=== PATIENT | female | born 1995 | race Caucasian/White ===

== ENCOUNTER 2016-07-02 09:00 | Inpatient (IN) | payer MEDICAID, OTHER ==
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
[2016-07-02 14:44] VITALS: BMI 23.9
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
[2016-07-03 06:57] VITALS: BP 115/58; PULSE 95; RESP 14; TEMP 98.6
[2016-07-03 10:02] LABS: ALT 15 U/L (9-52); AST 16 U/L (14-36); Alkaline Phosphatase 62 U/L (38-126); Anion Gap 9 mmol/L; Bilirubin, Delta 0.2 mg/dL (0.0-0.2); Blood Urea Nitrogen 10 mg/dL (7-17); Calcium 9.3 mg/dL (8.4-10.2); Carbon Dioxide 25 mmol/L (22-30); Chloride 103 mmol/L (98-107); Glucose 117 mg/dL (74-99); Non-African American GFR(MDRD) >60 (>60 ml/min/1.73 sqM); Potassium 4.1 mmol/L (3.5-5.1); Sodium 137 mmol/L (137-145); Total Bilirubin 0.9 mg/dL (0.2-1.3)
[2016-07-03 10:15] LABS: Basophils % (A) 1 %; CH 30.3; CHCM 34.1; Eosinophils # (A) 0.1 k/uL (0-0.7); Eosinophils % (A) 2 %; HCT 39.3 % (34.0-46.0); HDW 2.81; HGB 13.3 gm/dL (11.4-16.0); Luc # (Auto) 0.09; Luc % (Auto) 1; Lymphocytes # (A) 1.2 k/uL (1.0-4.8); Lymphocytes % (A) 17 %; MCH 30.2 pg (25.0-35.0); MCHC 33.8 g/dL (31.0-37.0); MCV 89.2 fL (80.0-100.0); Mean Platelet Volume 7.2; Monocytes # (A) 0.2 k/uL (0-1.0); Monocytes % (A) 3 %; Neutrophils # (A) 5.6 k/uL (1.3-7.7); Neutrophils % (A) 77 %; RDW 14.4 % (11.5-15.5); WBC 7.2 k/uL (3.8-10.6); WBC (Perox) 7.31
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
[2016-07-04] MEDS ORDERED: PRENATAL VIT-IRON-FOLIC ACID 1 EACH CAP PO SCH (12:00)
== END 2016-07-03 15:41 | disposition home or self-care (01) | DRG 781 ==
LOC: EC 09:00 → 3MHU 13:36
PROVIDERS: ADMIT Psychiatry & Neurology Psychiatry; ATTEND Psychiatry & Neurology Psychiatry
DX: O99.342 Other mental disorders complicating pregnancy, second trimester (principal); O99.322 Drug use complicating pregnancy, second trimester; F43.25 Adjustment disorder with mixed disturbance of emotions and conduct; Z3A.17 17 weeks gestation of pregnancy; F12.90 Cannabis use, unspecified, uncomplicated; O21.0 Mild hyperemesis gravidarum; Z91.5 Personal history of self-harm; Z81.8 Family history of other mental and behavioral disorders
CPT/HCPCS: 76815; 80053; 80306; 82248; 84443; 85025; 99285

== ENCOUNTER 2016-08-27 02:27 | Outpatient (CLI) | payer OTHER ==
[2016-08-27 02:37] VITALS: BP 127/68; PULSE 77; RESP 16; TEMP 96.9
== END 2016-08-27 03:55 | disposition home or self-care (01) ==
LOC: FBPOP 02:27
PROVIDERS: ATTEND Obstetrics & Gynecology
DX: O26.852 Spotting complicating pregnancy, second trimester (principal); Z3A.25 25 weeks gestation of pregnancy
CPT/HCPCS: 99213

== ENCOUNTER 2016-10-11 18:38 | Emergency (ER) | payer OTHER ==
[2016-10-11] MEDS ORDERED: SODIUM CHLORIDE 0.9% 1,000 ML IV ONE (19:21)
--- NOTE | 2016-10-11 19:27 | ED ---
General Adult HPI - General Chief complaint: Shortness of Breath Stated complaint: Diff Breathing Time Seen by Provider: 10/11/16 19:01 Source: patient Mode of arrival: ambulatory Limitations: no limitations - History of Present Illness Initial comments: Arleth is a female at 31 weeks who presents to the emergency department for evaluation of fatigue, lightheadedness and feeling that she cannot catch her breath. Patient reports that she has been treated for anemia in the past, requiring a blood transfusion after the delivery of her last child. Patient reports that she has been evaluated for anemia during this and advised that she should be on iron supplementation but is currently not taking any. Patient reports that yesterday at work she began to feel very fatigued and was told she needed to relax, she reports that when she sat down she didn't feel any relief and instead felt as though she can't catch a full breath, she describes a sensation as feeling as though her stomach is full even though she hadn't just eaten anything. Patient states that she has continued to feel fatigued since yesterday. She reports eating and drinking her normal diet without any relief. denies any history of blood clots, DVTs or PEs. She denies any cardiac history. She denies any chest pain. She denies any exertional dyspnea or lower extremity swelling. Patient reports she has been feeling a lot of motion. She has occasional cramping she has had no vaginal discharge, vaginal bleeding or significant pelvic pain. She states that she has close follow-up with her OB and thus far has had an uncomplicated . - Related Data Home Medications Medication Instructions Recorded Confirmed Pnv,Calcium 72/Iron/Folic Acid 1 tab PO HS 10/11/16 10/11/16 [ Plus Tablet] Allergies Allergy/AdvReac Type Severity Reaction Status Date / Time milk Allergy Nausea & Verified 10/11/16 19:14 Vomiting & Diarrhea latex AdvReac Rash/Hives Verified 10/11/16 19:14 Review of Systems ROS Statement: Those systems with pertinent positive or pertinent negative responses have been documented in the HPI. ROS Other: All systems not noted in ROS Statement are negative. Constitutional: Denies: fever, chills, weakness ENT: Denies: throat pain, congestion Respiratory: Reports: dyspnea. Denies: cough, wheezes Cardiovascular: Denies: chest pain, palpitations, dyspnea on exertion, orthopnea , edema, syncope Endocrine: Reports: fatigue Gastrointestinal: Reports: abdominal pain (cramping). Denies: nausea, vomiting , diarrhea, constipation Genitourinary: Denies: urgency, dysuria, frequency, hematuria, discharge Musculoskeletal: Denies: back pain Skin: Denies: rash, lesions Neurological: Denies: headache, weakness, numbness, paresthesias Psychiatric: Denies: anxiety, depression Hematological/Lymphatic: Denies: easy bleeding, easy bruising Past Medical History Past Medical History: No Reported History History of Any Multi-Drug Resistant Organisms: None Reported Past Surgical History: No Surgical Hx Reported Past Anesthesia/Blood Transfusion Reactions: No Reported Reaction Past Psychological History: Depression Smoking Status: Never smoker Past Alcohol Use History: None Reported Past Drug Use History: None Reported - Past Family History Mother Family Medical History: No Reported History Father Family Medical History: No Reported History Brother(s) Family Medical History: No Reported History Sister(s) Family Medical History: No Reported History General Exam Limitations: no limitations General appearance: alert, in no apparent distress Head exam: Present: atraumatic, normocephalic Eye exam: Present: normal appearance, other (Conjunctival pallor). Absent: scleral icterus, conjunctival injection ENT exam: Present: normal exam, mucous membranes moist Neck exam: Present: normal inspection. Absent: tenderness, meningismus, lymphadenopathy Respiratory exam: Present: decreased breath sounds (bilateral bases). Absent: respiratory distress, wheezes, rales, rhonchi, stridor, chest wall tenderness, accessory muscle use Cardiovascular Exam: Present: regular rate, normal rhythm, normal heart sounds. Absent: systolic murmur, diastolic murmur, rubs, gallop, clicks GI/Abdominal exam: Present: soft. Absent: tenderness, guarding, rebound, rigid (Gravid uterus, palpable movement) Rectal exam: Present: deferred Extremities exam: Present: normal inspection, full ROM, normal capillary refill. Absent: tenderness, pedal edema, joint swelling, calf tenderness Back exam: Absent: CVA tenderness (R), CVA tenderness (L) Neurological exam: Present: alert, oriented X3, CN II-XII intact Psychiatric exam: Present: normal affect, normal mood Skin exam: Present: warm, dry, intact, normal color. Absent: rash Course Vital Signs 0710/11/16 10/11/16 18:57 19:40 20:23 Temperature 99.7 F H Pulse Rate 82 87 Respiratory 20 20 20 Rate Blood Pressure 119/67 O2 Sat by Pulse 100 99 Oximetry 10/11/16 22:14 Temperature 98.5 F Pulse Rate 55 L Respiratory 15 Rate Blood Pressure 123/64 O2 Sat by Pulse 99 Oximetry - Reevaluation(s) Reevaluation #1: She was reevaluated, sitting comfortably in the hospital bed playing on her cell phone, Laboratory results were discussed with the patient, I advised her that she is anemic with hemoglobin 9.7 and needs to resume taking iron supplementation as she has previously been advised to. Patient expressed understanding. Currently awaiting venous Dopplers of the lower extremities. Reevaluation #2: Patient was reevaluated after venous Dopplers, patient again resting comfortably playing on her cell phone. I assisted the patient ambulating to the restroom carrying her IV when she returned to the room and performed Dopplers to allow the patient here her daughter's heart rate. Ulcers discuss results of lower extremity venous Dopplers which were negative for acute DVT. EKG Findings - EKG Comments: EKG Findings:: EKG at 191 - rate is 80, rhythm is normal sinus, normal axis, normal intervals, NV 164, QRS 84, QTC 429, no acute ST elevations or depressions. Medical Decision Making - Medical Decision Making Patient seen and evaluated History obtained from patient Labs, EKG ordered EKG sinus rhythm, rate 80, normal axis, normal intervals, no acute ST elevations or depressions. No evidence of acute right heart strain. Venous Dopplers ordered to evaluate for DVT. I will not order a d-dimer because the patient is and d-dimer is not reliable to exclude pulmonary embolism in . Lab results were discussed with the patient, I advised her that she is anemic with a hemoglobin of 9.7. I advised her that this does not require transfusion however she does need to begin taking her iron supplementation and follow up with her OB for repeat hemoglobin levels. Patient expressed understanding. Dopplers reveal a heart rate with variability from 150-206 bpm, patient reports she is feeling good motion I advised the patient the considering she did have shortness of breath, I cannot absolutely rule out a pulmonary embolism without a CT angiogram. I discussed the risks and benefits of the CT angiogram during . I advised the patient that based on EKG, physical exam and negative venous Dopplers I have a low suspicion however cannot absolutely rule this out. Patient expressed understanding and would prefer to avoid CT angiogram at this time she doesn't want to expose her unborn child to radiation. I advised the patient that should she develop any worsening shortness of breath, chest pain or worsening fist Agus she needs to return to the emergency department immediately. Patient expressed understanding. All questions pertaining to care were answered to the best of my ability, I advised the patient multiple times that she is anemic and needs to be taking iron supplementation and she has been advised to do so in the past. Patient expressed understanding of this. I advised the patient that she needs call her OB tomorrow to establish follow-up. Patient expressed understanding. Patient was discharged home in stable condition. - Lab Data Result diagrams: 10/11/16 19:31 10/11/16 19:31 Lab Results 10/11/16 10/11/16 10/11/16 Range/Units 19:31 19:31 19:31 WBC 10.8 H (3.8-10.6) k/uL RBC 3.44 L (3.80-5.40) m/uL Hgb 9.7 L (11.4-16.0) gm/dL Hct 29.6 L (34.0-46.0) % MCV 86.1 (80.0-100.0) fL MCH 28.2 (25.0-35.0) pg MCHC 32.8 (31.0-37.0) g/dL RDW 14.0 (11.5-15.5) % Plt Count 299 (150-450) k/uL Neutrophils % 76 % Lymphocytes % 17 % Monocytes % 4 % Eosinophils % 2 % Basophils % 1 % Neutrophils # 8.2 H (1.3-7.7) k/uL Lymphocytes # 1.8 (1.0-4.8) k/uL Monocytes # 0.4 (0-1.0) k/uL Eosinophils # 0.2 (0-0.7) k/uL Basophils # 0.1 (0-0.2) k/uL Poikilocytosis Slight PT 10.0 (9.0-12.0) sec INR 1.0 (<1.2) APTT 21.6 L (22.0-30.0) sec Sodium 137 (137-145) mmol/L Potassium 3.7 (3.5-5.1) mmol/L Chloride 106 (98-107) mmol/L Carbon Dioxide 21 L (22-30) mmol/L Anion Gap 10 mmol/L BUN 7 (7-17) mg/dL Creatinine 0.50 L (0.52-1.04) mg/dL Est GFR (MDRD) Af Amer >60 (>60 ml/min/1.73 sqM) Est GFR (MDRD) Non-Af >60 (>60 ml/min/1.73 sqM) Glucose 97 (74-99) mg/dL Calcium 8.5 (8.4-10.2) mg/dL Total Bilirubin 0.4 (0.2-1.3) mg/dL AST 17 (14-36) U/L ALT 21 (9-52) U/L Alkaline Phosphatase 85 (38-126) U/L Total Protein 5.8 L (6.3-8.2) g/dL Albumin 3.2 L (3.5-5.0) g/dL Urine Color Urine Appearance (Clear) Urine pH (5.0-8.0) Ur Specific [place] (1.001-1.035) Urine Protein (Negative) Urine Glucose (UA) (Negative) Urine Ketones (Negative) Urine Blood (Negative) Urine Nitrite (Negative) Urine Bilirubin (Negative) Urine Urobilinogen (<2.0) mg/dL Ur Leukocyte Esterase (Negative) Ur Squamous Epith Cells (0-4) /hpf Amorphous Sediment (None) /hpf Urine Mucus (None) /hpf 10/11/16 Range/Units 20:07 WBC (3.8-10.6) k/uL RBC (3.80-5.40) m/uL Hgb (11.4-16.0) gm/dL Hct (34.0-46.0) % MCV (80.0-100.0) fL MCH (25.0-35.0) pg MCHC (31.0-37.0) g/dL RDW (11.5-15.5) % Plt Count (150-450) k/uL Neutrophils % % Lymphocytes % % Monocytes % % Eosinophils % % Basophils % % Neutrophils # (1.3-7.7) k/uL Lymphocytes # (1.0-4.8) k/uL Monocytes # (0-1.0) k/uL Eosinophils # (0-0.7) k/uL Basophils # (0-0.2) k/uL Poikilocytosis PT (9.0-12.0) sec INR (<1.2) APTT (22.0-30.0) sec Sodium (137-145) mmol/L Potassium (3.5-5.1) mmol/L Chloride (98-107) mmol/L Carbon Dioxide (22-30) mmol/L Anion Gap mmol/L BUN (7-17) mg/dL Creatinine (0.52-1.04) mg/dL Est GFR (MDRD) Af Amer (>60 ml/min/1.73 sqM) Est GFR (MDRD) Non-Af (>60 ml/min/1.73 sqM) Glucose (74-99) mg/dL Calcium (8.4-10.2) mg/dL Total Bilirubin (0.2-1.3) mg/dL AST (14-36) U/L ALT (9-52) U/L Alkaline Phosphatase (38-126) U/L Total Protein (6.3-8.2) g/dL Albumin (3.5-5.0) g/dL Urine Color Yellow Urine Appearance Cloudy H (Clear) Urine pH 7.5 (5.0-8.0) Ur Specific [place] 1.011 (1.001-1.035) Urine Protein Trace H (Negative) Urine Glucose (UA) Negative (Negative) Urine Ketones Negative (Negative) Urine Blood Negative (Negative) Urine Nitrite Negative (Negative) Urine Bilirubin Negative (Negative) Urine Urobilinogen 2.0 (<2.0) mg/dL Ur Leukocyte Esterase Negative (Negative) Ur Squamous Epith Cells <1 (0-4) /hpf Amorphous Sediment Moderate H (None) /hpf Urine Mucus Rare H (None) /hpf Disposition Clinical Impression: Anemia affecting Disposition: HOME SELF-CARE Condition: Good Instructions: Iron Rich Diet (ED), Iron Deficiency Anemia (ED), Anemia (ED) Additional Instructions: start taking your iron supplementation today. Call Dr Kuhn tomorrow to discuss with her your ER visit and establish closer follow up Referrals: Kishore Zamudio Jr, DO [Primary Care Provider] - 1-2 days Marsha Kuhn MD [STAFF PHYSICIAN] - 1-2 days Time of Disposition: 21:58
[2016-10-11 19:49] LABS: Basophils # (A) 0.1 k/uL (0-0.2); Basophils % (A) 1 %; CH 28.9; CHCM 33.7; Eosinophils # (A) 0.2 k/uL (0-0.7); Eosinophils % (A) 2 %; HCT 29.6 % (34.0-46.0); HDW 3.65; HGB 9.7 gm/dL (11.4-16.0); Luc # (Auto) 0.15; Luc % (Auto) 1; Lymphocytes # (A) 1.8 k/uL (1.0-4.8); Lymphocytes % (A) 17 %; MCH 28.2 pg (25.0-35.0); MCHC 32.8 g/dL (31.0-37.0); MCV 86.1 fL (80.0-100.0); Mean Platelet Volume 7.9; Monocytes # (A) 0.4 k/uL (0-1.0); Monocytes % (A) 4 %; Neutrophils # (A) 8.2 k/uL (1.3-7.7); Neutrophils % (A) 76 %; Poikilocytosis Slight; RBC 3.44 m/uL (3.80-5.40); WBC 10.8 k/uL (3.8-10.6); WBC (Perox) 10.07
[2016-10-11 20:05] LABS: ALT 21 U/L (9-52); AST 17 U/L (14-36); Alkaline Phosphatase 85 U/L (38-126); Anion Gap 10 mmol/L; Blood Urea Nitrogen 7 mg/dL (7-17); Calcium 8.5 mg/dL (8.4-10.2); Carbon Dioxide 21 mmol/L (22-30); Chloride 106 mmol/L (98-107); Glucose 97 mg/dL (74-99); Non-African American GFR(MDRD) >60 (>60 ml/min/1.73 sqM); Potassium 3.7 mmol/L (3.5-5.1); Sodium 137 mmol/L (137-145); Total Bilirubin 0.4 mg/dL (0.2-1.3); Total Protein 5.8 g/dL (6.3-8.2)
[2016-10-11 20:32] LABS: Partial Thromboplastin Time 21.6 sec (22.0-30.0)
[2016-10-11 20:37] LABS: Amorphous Sediment,Urine Moderate /hpf; Appearance,Urine Cloudy (Clear); Bilirubin,Urine Negative (Negative); Glucose,Urine (UA) Negative (Negative); Ketones,Urine Negative (Negative); Leukocyte Esterase,Urine Negative (Negative); Mucus,Urine Rare /hpf; Nitrite,Urine Negative (Negative); PH, Urine 7.5 (5.0-8.0); Particle Count 11216; Protein,Urine Trace (Negative); Specific Gravity,Urine 1.011 (1.001-1.035); Squamous Epithelial Cell,Urine <1 /hpf (0-4); UA Billing (MACRO vs. MICRO) MICRO
--- NOTE | 2016-10-11 21:44 | US ---
EXAMINATION TYPE: US venous doppler duplex LE BI DATE OF EXAM: 10/11/2016 9:37 PM COMPARISON: NONE CLINICAL HISTORY: Pain. SIDE PERFORMED: Bilateral TECHNIQUE: The lower extremity deep venous system is examined utilizing real time linear array sonog [place] with graded compression, doppler sonography and color-flow sonography. VESSELS IMAGED: External Iliac Vein (EIV) Common Femoral Vein Deep Femoral Vein Greater Saphenous Vein * Femoral Vein Popliteal Vein Small Saphenous Vein * Proximal Calf Veins (* superficial vessels) Right Leg: Negative for DVT Left Leg: Negative for DVT IMPRESSION: Negative exam. No evidence of deep venous thrombosis in left and right leg.
[2016-10-11 22:15] VITALS: BP 123/64; PULSE 55; RESP 15; TEMP 98.5
== END 2016-10-11 22:19 | disposition home or self-care (01) ==
LOC: EC 18:38
DX: O99.013 Anemia complicating pregnancy, third trimester (principal); D64.9 Anemia, unspecified; Z91.040 Latex allergy status; Z91.011 Allergy to milk products; Z3A.31 31 weeks gestation of pregnancy; Z79.899 Other long term (current) drug therapy
CPT/HCPCS: 36415; 80053; 81001; 85025; 85610; 85730; 87086; 93005; 93970; 96360; 96361; 99285

== ENCOUNTER 2016-12-07 06:00 | Inpatient (IN) | payer OTHER ==
[2016-12-07] MEDS ORDERED: LIDOCAINE 1% (PF) 10 MG/ML (30 ML SDV) SQ PRN (06:33)
[2016-12-07] MEDS ORDERED: METHYLERGONOVINE 0.2 MG/ML 1 ML AMP IM PRN (06:33)
[2016-12-07] MEDS ORDERED: TERBUTALINE 1 MG/ML VIAL SQ PRN (06:33)
[2016-12-07] MEDS ORDERED: CARBOPROST TROMETHAMINE 250 MCG/ML 1 ML AMP IM PRN (06:33)
[2016-12-07] MEDS ORDERED: PENICILLIN G POTASSIUM 5,000,000 UNIT in DEXTROSE 5% IN WATER 100 ML IV STA ×2 (06:33)
[2016-12-07] MEDS ORDERED: OXYTOCIN 10 UNIT/ML 1 ML VIAL IM PRN (06:33)
[2016-12-07 06:59] LABS: Anisocytosis Slight; Basophils # (A) 0.1 k/uL (0-0.2); Basophils % (A) 1 %; CH 26.9; CHCM 33.4; Eosinophils # (A) 0.2 k/uL (0-0.7); Eosinophils % (A) 2 %; HDW 3.57; HGB 9.6 gm/dL (11.4-16.0); Luc % (Auto) 1; Lymphocytes # (A) 2.1 k/uL (1.0-4.8); Lymphocytes % (A) 20 %; MCH 26.7 pg (25.0-35.0); Mean Platelet Volume 7.7; Monocytes # (A) 0.4 k/uL (0-1.0); Monocytes % (A) 4 %; Neutrophils # (A) 7.8 k/uL (1.3-7.7); Neutrophils % (A) 73 %; Poikilocytosis Slight; RBC 3.59 m/uL (3.80-5.40); RDW 16.1 % (11.5-15.5); WBC 10.7 k/uL (3.8-10.6); WBC (Perox) 11.09
[2016-12-07 07:03] LABS: MCV 80.8 fL (80.0-100.0)
[2016-12-07] MEDS: OXYTOCIN 20 UNITS/1000 ML NS 1,000 ML IV SCH ×2 (07:04→07:32)
[2016-12-07] MEDS: LACTATED RINGERS 1,000 ML IV SCH ×2 (07:32→09:01)
[2016-12-07 07:59] VITALS: BMI 29.2
[2016-12-07] MEDS ORDERED: BUTORPHANOL 1 MG/ML 1 ML VIAL IV PRN (08:52)
[2016-12-07] MEDS ORDERED: SODIUM CHLORIDE 0.9% 100 ML BAG ONE (09:32)
[2016-12-07] MEDS ORDERED: fentaNYL (PF) 50 MCG/ML 5 ML AMP ONE (09:32)
[2016-12-07] MEDS ORDERED: BUPIVACAINE (PF) 0.25% 30 ML VIAL ONE (09:32)
[2016-12-07] MEDS ORDERED: BUPIVACAINE (PF) 0.25% 25 ML, fentaNYL (PF) 200 MCG in SODIUM CHLORIDE 0.9% 71 ML EPIDURAL ONE (10:59)
[2016-12-07] MEDS ORDERED: PENICILLIN G POTASSIUM 2,500,000 UNIT in DEXTROSE 5% IN WATER 100 ML IV SCH ×2 (11:00)
--- NOTE | 2016-12-07 12:53 | P.HPOB ---
History of Present Illness H&P Date: 12/07/16 This is a 22-year-old white female 2 para 1001 EDC 12/09/2016 at 39-5/7 weeks' gestation. Patient presented this morning for elective induction of labor with favorable multiparous cervix. is remarkable for positive group B strep cultures. She denies vaginal bleeding or fluid leakage. She is having irregular mild uterine contractions upon presentation. Past medical history is significant for anxiety, as well as a history of ovarian cysts. Past surgical history is negative. Current medications vitamins daily. ALLERGIES include a latex intolerance, but no other known medical ALLERGIES. Family history significant for Mnire's disease hypothyroidism and diabetes. Social history patient is single, boyfriend is involved in the . She denies alcohol or drug use or tobacco use. history patient's group B strep cultures are positive, blood type A+, rubella status immune. VDRL testing, gonorrhea and chlamydia cultures, hepatitis B surface antigen, HIV testing, urine screen all negative. On exam this is a pleasant young female, 5 foot 2 inches, 160 pounds, blood pressure 121/58, vital signs are otherwise stable and she is afebrile. The general physical exam is within normal limits. The cervix upon admission is 3 cm dilated, 75% effaced, -2 station, vertex presentation. Artificial amniorrhexis reveals clear fluid. Uterine contractions are noted on the monitor in an irregular fashion. heart rate is in the 140s with frequent accelerations, consistent with reactive NST. Impression: 39-5/7 weeks intrauterine , here for elective induction of labor, positive group B strep cultures noted. Plan: Penicillin G prophylaxis will be instituted at this time per hospital protocol. Oxytocin per hospital protocol. Close maternal and surveillance. Analgesic options are reviewed with the patient. Anticipate normal spontaneous vaginal delivery. Review of Systems Except as in HPI. Past Medical History Past Medical History: No Reported History Additional Past Medical History / Comment(s): anxiety History of Any Multi-Drug Resistant Organisms: None Reported Past Surgical History: No Surgical Hx Reported Past Anesthesia/Blood Transfusion Reactions: No Reported Reaction Past Psychological History: Anxiety, Depression Additional Psychological History / Comment(s): plans to take Zoloft after delivery Smoking Status: Never smoker Past Alcohol Use History: None Reported Past Drug Use History: None Reported Additional Drug Use History / Comment(s): Pt. states she smoked marijuana daily before she got . Pt. states she smoked a week ago because on Nausea. Pt. states she had morning sickness but it has subsided - Past Family History Mother Family Medical History: Cancer Additional Family Medical History / Comment(s): cervical cancer Father Family Medical History: No Reported History Brother(s) Family Medical History: No Reported History Sister(s) Family Medical History: No Reported History Medications and Allergies Home Medications Medication Instructions Recorded Confirmed Type No Known Home Medications [No 12/07/16 12/07/16 History Known Home Medications] Allergies Allergy/AdvReac Type Severity Reaction Status Date / Time milk Allergy Nausea & Verified 12/07/16 06:31 Vomiting & Diarrhea latex AdvReac Rash/Hives Verified 12/07/16 06:31 Exam - Vital Signs Vital signs: Vital Signs Temp Pulse Resp BP 12/07/16 06:23 96.7 F L 80 16 121/58 Intake and Output 12/06/16 12/07/16 12/07/16 22:59 06:59 14:59 Intake Total 1.4 Balance 1.4 Intake: Intake, IV Titration 1.4 Amount Oxytocin 20 Units/1000 ml 1.4 Ns 1,000 ml @ 1 MILLIUNIT/MIN 3 mls/hr IV .Q24H [facility] Rx#:[id number] Other: Weight 72.575 kg See dictation under HPI, please. Results Result Diagrams: 12/07/16 06:45 Abnormal Lab Results - Last 24 Hours (Table) 12/07/16 Range/Units 06:45 WBC 10.7 H (3.8-10.6) k/uL RBC 3.59 L (3.80-5.40) m/uL Hgb 9.6 L (11.4-16.0) gm/dL Hct 29.0 L (34.0-46.0) % RDW 16.1 H (11.5-15.5) % Neutrophils # 7.8 H (1.3-7.7) k/uL Assessment and Plan Plan: Penicillin G prophylaxis per hospital protocol. Close maternal and surveillance. Anticipate normal spontaneous vaginal delivery. Time with Patient: Less than 30
[2016-12-07] MEDS ORDERED: diphenhydrAMINE ELIXIR 25 MG/10 ML CUP PO PRN (12:55)
[2016-12-07] MEDS ORDERED: Acetaminophen-Codeine 300-30mg TAB PO PRN (12:55)
[2016-12-07] MEDS ORDERED: diphenhydrAMINE 50 MG CAP PO PRN (12:55)
[2016-12-07] MEDS ORDERED: ZOLPIDEM 5 MG TAB PO PRN (12:55)
[2016-12-07] MEDS ORDERED: HYDROCORTISONE 2.5% RECTAL CREAM 30 GM TUBE RECTAL PRN (12:55)
[2016-12-07] MEDS ORDERED: ACETAMINOPHEN TAB 325 MG TAB PO PRN (12:55)
[2016-12-07] MEDS ORDERED: diphenhydrAMINE 50 MG/ML 1 ML VIAL IVP PRN ×2 (12:55)
[2016-12-07] MEDS ORDERED: BENZOCAINE/MENTHOL SPRAY 1 GM/SPRAY AEROSOL TOPICAL PRN (12:55)
[2016-12-07] MEDS ORDERED: SIMETHICONE 80 MG CHEWABLE PO PRN (12:55)
[2016-12-07] MEDS ORDERED: WITCH HAZEL 1 EACH MED..PAD TOPICAL PRN (12:55)
[2016-12-07] MEDS ORDERED: diphenhydrAMINE 25 MG CAP PO PRN (12:55)
[2016-12-07] MEDS ORDERED: LANOLIN CREAM 5 GM TUBE TOPICAL PRN (12:55)
--- NOTE | 2016-12-07 12:55 | P.PROBDLV ---
Vaginal Delivery Note - . Vaginal Delivery Note: This is a 21-year-old white female 2 para 1001 EDC 12/09/2016 at 39-5/7 weeks' gestation. Patient presented for elective induction of labor with favorable multiparous cervix. is significant for positive group B strep cultures. Please see my dictated history and physical for details. On admission patient was 3 cm dilated, 75% effaced, -2 station, vertex, -2 station. Artificial amniorrhexis revealed clear fluid. Oxytocin was started and titrated per hospital protocol. Penicillin G was also given, 2 doses total receive every 4 hours apart. Patient became uncomfortable requested epidural, this was placed without difficulty per the anesthesia staff. Patient progressed well through the first stage of labor and became completely dilated at 1235 hrs. The perineal body was prepped and draped in the usual sterile fashion. Infant's head delivered occiput anterior and restituted accordingly. There was a tight nuchal cord 1 that was reduced without issue. The anterior shoulder was gently and easily delivered from underneath the pubic symphysis at which time the oropharynx, nasopharynx, and external nares were all bulb suctioned on the perineal body. Patient was officially delivered of a liveborn female at 1237 hrs. The umbilical cord was doubly clamped and ligated, she was handed to waiting nurses for evaluation where scores of 9 and 9 at one and 5 minutes respectively were given. The infant weighed 7 lbs. 2 oz. or 3220 g. The placenta delivered spontaneously, it was inspected and noted to be intact with trivascular cord at 1240 hrs. At this time the perineal body was redraped. Inspection of the cervix, vagina, perineum and periurethral areas revealed no lacerations and no defects. Fundus is firm and in the midline, symmetric and 18 week size upon completion of delivery. All sponge needle and enhancement counts are correct at the end of the procedure. Patient and her family are allowed to begin the bonding experience in the LDR.
[2016-12-07] MEDS: IBUPROFEN 600 MG TAB PO PRN ×2 (13:11→21:33)
[2016-12-07] MEDS: SENNOSIDES-DOCUSATE SODIUM 1 EACH TAB PO SCH (22:23)
--- NOTE | 2016-12-08 09:36 | P.DS ---
Providers Date of admission: 12/07/16 06:10 Expected date of discharge: 12/08/16 Attending physician: Marsha Kuhn Primary care physician: [facility] Course: This is a 21-year-old white female 2 now para 2001 who presented at 39-5 /7 weeks' gestation for elective induction. was significant for positive group B strep cultures, and latex ALLERGY. Please see dictated history and physical for details. Patient was admitted, artificial amniorrhexis revealed clear fluid. Epidural was placed per her request. She went on to swiftly deliver a liveborn female infant with scores of 9 and 9 at one and 5 minutes respectively. There was a nuchal cord that was reduced on the perineal body. She did receive 5 million units of penicillin G at 0732 hours, and repeat 2.5 million units at 1152 hours. weighed 7 lbs. 2 oz. or 3220 g. There were no perineal lacerations or defects. Please see my dictated delivery note for details. This morning the patient is doing well. She is voiding, and bleeding and passing flatus without difficulty. Vital signs are stable and she is afebrile. Fundus is firm and in the midline, symmetric and 18 week size. Extremities are negative for edema. Breasts are not engorged. [place] is doing well. I have reminded her no intercourse, tampons or douching. We have briefly discussed options of contraception choices and we will discuss this further in the office. She will continue taking her vitamin every day. She will use [id number] ibuprofen products as needed for pain, 600 mg every 6 hours. She will call with any foul smelling or copious lochia, with the passage of large blood clots, with any pain not alleviated by over-the- counter products, or indeed with any concerns. [place] will follow-up with [employer] consultant as per recommendations. Patient Condition at Discharge: Good Plan - Discharge Summary New Discharge Prescriptions: No Action No Known Home Medications [No Known Home Medications] Discharge Medication List No Known Home Medications [No Known Home Medications] 12/07/16 [History] Follow up Appointment(s)/Referral(s): Marsha Kuhn MD [STAFF PHYSICIAN] - 6 Weeks Discharge Disposition: HOME SELF-CARE
[2016-12-08] MEDS: IBUPROFEN 600 MG TAB PO PRN (15:00)
[2016-12-08 15:50] VITALS: BP 134/82; PULSE 73; RESP 16; TEMP 97.5
[2016-12-08] MEDS: SENNOSIDES-DOCUSATE SODIUM 1 EACH TAB PO SCH (16:24)
== END 2016-12-08 18:22 | disposition home or self-care (01) | DRG 775 ==
LOC: 4FBP 06:10
PROVIDERS: ADMIT Obstetrics & Gynecology; ATTEND Obstetrics & Gynecology
PROC: 10E0XZZ Delivery of Products of Conception, External Approach (ICD-10-PCS; principal; 2016-12-07)
PROC: 00HU33Z Insertion of Infusion Device into Spinal Canal, Percutaneous Approach (ICD-10-PCS; 2016-12-07)
PROC: 3E0R3NZ Introduction of Analgesics, Hypnotics, Sedatives into Spinal Canal, Percutaneous Approach (ICD-10-PCS; 2016-12-07)
PROC: 10907ZC Drainage of Amniotic Fluid, Therapeutic from Products of Conception, Via Natural or Artificial Opening (ICD-10-PCS; 2016-12-07)
PROC: 3E033VJ Introduction of Other Hormone into Peripheral Vein, Percutaneous Approach (ICD-10-PCS; 2016-12-07)
DX: O69.1XX0 Labor and delivery complicated by cord around neck, with compression, not applicable or unspecified (principal); O99.344 Other mental disorders complicating childbirth; F32.9 Major depressive disorder, single episode, unspecified; F41.9 Anxiety disorder, unspecified; Z3A.39 39 weeks gestation of pregnancy; Z37.0 Single live birth; Z83.3 Family history of diabetes mellitus; Z87.891 Personal history of nicotine dependence; Z80.49 Family history of malignant neoplasm of other genital organs; Z91.040 Latex allergy status; Z91.011 Allergy to milk products
CPT/HCPCS: 85025; 88307

== ENCOUNTER 2017-12-14 18:50 | Emergency (ER) | payer OTHER ==
[2017-12-14 18:56] VITALS: BP 118/73; PULSE 94; RESP 16; TEMP 98.4
--- NOTE | 2017-12-14 19:36 | ED ---
Skin/Abscess/FB HPI - General Chief complaint: Skin/Abscess/Foreign Body Stated complaint: blisters on hands and feet Time Seen by Provider: 12/14/17 19:12 Source: patient, RN notes reviewed Mode of arrival: ambulatory Limitations: no limitations - History of Present Illness Initial comments: This is a 22-year-old female who presents to the emergency department with chief complaint of rash. Patient states that she was playing on the monkey bars on Wednesday and afterwards had pain in her palms. She states on Wednesday she noticed a rash on both of her hands and feet. She states that her daughter has similar symptoms. States that she is fully up-to-date with vaccinations. Denies any injuries. Denies fevers or chills, chest pain or shortness of breath , abdominal pain, nausea or vomiting. - Related Data Home Medications Medication Instructions Recorded Confirmed No Known Home Medications 12/07/16 12/07/16 Allergies Allergy/AdvReac Type Severity Reaction Status Date / Time milk Allergy Nausea & Verified 12/14/17 18:56 Vomiting & Diarrhea latex AdvReac Rash/Hives Verified 12/14/17 18:56 Review of Systems ROS Statement: Those systems with pertinent positive or pertinent negative responses have been documented in the HPI. ROS Other: All systems not noted in ROS Statement are negative. Past Medical History Past Medical History: No Reported History Additional Past Medical History / Comment(s): anxiety History of Any Multi-Drug Resistant Organisms: None Reported Past Surgical History: No Surgical Hx Reported Past Anesthesia/Blood Transfusion Reactions: No Reported Reaction Past Psychological History: Anxiety, Depression Smoking Status: Never smoker Past Alcohol Use History: None Reported Past Drug Use History: None Reported - Past Family History Mother Family Medical History: Cancer Additional Family Medical History / Comment(s): cervical cancer Father Family Medical History: No Reported History Brother(s) Family Medical History: No Reported History Sister(s) Family Medical History: No Reported History General Exam - General Exam Comments Initial Comments: General: Awake and alert, well-developed; in no apparent distress. HEENT: Head atraumatic, normocephalic. Pupils are equal, round and reactive to light. Extraocular movements intact. Oropharynx moist without erythema or exudate. Neck: Supple. Normal ROM. Cardiovascular: Regular rate and rhythm. No murmurs, rubs or gallops. Chest symmetrical. Respiratory: Lungs clear to auscultation bilaterally. No wheezes, rales or rhonchi. Normal respiratory effort with no use of accessory muscles. Musculoskeletal: Normal ROM, no tenderness bilateral upper and lower extremities. Ambulating normally. Skin: Discrete, erythematous maculopapular lesions bilateral palms and soles. Neurological: Alert and oriented x3. CN II-XII grossly intact. Speech is fluent and answers are appropriate. No focal neuro deficits. Psychiatric: Normal mood and affect. No overt signs of depression or anxiety noted. l Limitations: no limitations Course Vital Signs 12/14/17 18:54 Temperature 98.4 F Pulse Rate 94 Respiratory 16 Rate Blood Pressure 118/73 O2 Sat by Pulse 95 Oximetry Medical Decision Making - Medical Decision Making This is a 22-year-old female who presents to the emergency department with chief complaint of rash. Patient has discrete, erythematous maculopapular lesions on bilateral palms and soles. She reports her young daughter has the same symptoms. It does appear the patient is suffering from [id number]- mouth disease. Educated patient that this is contagious. Patient's vital signs are stable and she is in no acute distress. She will be discharged home at this time. She is in agreement and voices understanding. All questions were answered. Disposition Clinical Impression: Hand, foot, and mouth disease Disposition: HOME SELF-CARE Condition: Good Instructions: Hand, Foot, and Mouth Disease (ED) Additional Instructions: Please follow up with primary care provider within 1-2 days. Return to emergency department if symptoms should worsen or any concerns arise. Is patient prescribed a controlled substance at d/c from ED?: No Referrals: Kishore Zamudio Jr, DO [Primary Care Provider] - 1-2 days Time of Disposition: 19:36
== END 2017-12-14 20:10 | disposition home or self-care (01) ==
LOC: EC 18:50
DX: B08.4 Enteroviral vesicular stomatitis with exanthem (principal); Z91.011 Allergy to milk products; Z91.040 Latex allergy status
CPT/HCPCS: 99282

== ENCOUNTER 2018-01-06 18:07 | Emergency (ER) | payer OTHER ==
[2018-01-06 18:27] VITALS: RESP 18
[2018-01-06] MEDS ORDERED: SODIUM CHLORIDE 0.9% 1,000 ML IV ONE (18:59)
--- NOTE | 2018-01-06 19:06 | ED ---
Abdominal Pain HPI - General Chief Complaint: Abdominal Pain Stated Complaint: 18 weeks , abd pain Time Seen by Provider: 01/06/18 18:44 Source: patient, family Mode of arrival: ambulatory Limitations: no limitations - History of Present Illness Initial Comments: 22-year-old female patient who is approximately 18 weeks presents to the emergency department today for evaluation of left lower quadrant abdominal pain and mid low back pain. Patient is A0. Patient states symptoms started this morning. Patient states she has had a cough for the last couple of weeks and did have a coughing episode this morning that was quite vigorous, this is when the abdominal pain started. Patient states that it does feel like a cramping type pain. She has had diarrhea for the last two days. She denies any abnormal vaginal bleeding or discharge. Denies any hematuria, dysuria or urinary frequency. States she does have urinary urgency. Patient has not had any care other than one visit to an emergency department in [place] at around 10 weeks gestation. Patient recently moved back from [place] and does not have insurance at this time so has not yet established with an OBGYN. Patient denies any fever, chills, chest pain, shortness of breath, nausea, or vomiting. Patient denies any recent rash, shortness breath, chest pain, constipation, back pain, numbness, tingling, dizziness, weakness, headache, visual changes, or any other complaints. - Related Data Previous Rx's Medication Instructions Recorded Cephalexin [Keflex] 500 mg PO Q6H #20 cap 01/06/18 Allergies Allergy/AdvReac Type Severity Reaction Status Date / Time milk Allergy Nausea & Verified 01/06/18 19:03 Vomiting & Diarrhea latex AdvReac Rash/Hives Verified 01/06/18 19:03 Review of Systems ROS Statement: Those systems with pertinent positive or pertinent negative responses have been documented in the HPI. ROS Other: All systems not noted in ROS Statement are negative. Past Medical History Past Medical History: No Reported History Additional Past Medical History / Comment(s): anxiety History of Any Multi-Drug Resistant Organisms: None Reported Past Surgical History: No Surgical Hx Reported Past Anesthesia/Blood Transfusion Reactions: No Reported Reaction Past Psychological History: Anxiety, Depression Smoking Status: Never smoker Past Alcohol Use History: None Reported Past Drug Use History: None Reported - Past Family History Mother Family Medical History: Cancer Additional Family Medical History / Comment(s): cervical cancer Father Family Medical History: No Reported History Brother(s) Family Medical History: No Reported History Sister(s) Family Medical History: No Reported History General Exam Limitations: no limitations General appearance: alert, in no apparent distress, other (This is a well- developed, well-nourished adult female patient in no acute distress. Vital signs upon presentation are temperature 98.7F, pulse 90, respirations 18, blood pressure 122/68, pulse ox 100% on room air.) Eye exam: Present: normal appearance, PERRL, EOMI. Absent: scleral icterus, conjunctival injection, periorbital swelling ENT exam: Present: normal exam, normal oropharynx, mucous membranes moist Respiratory exam: Present: normal lung sounds bilaterally. Absent: respiratory distress, wheezes, rales, rhonchi, stridor Cardiovascular Exam: Present: regular rate, normal rhythm, normal heart sounds. Absent: systolic murmur, diastolic murmur, rubs, gallop, clicks GI/Abdominal exam: Present: soft, normal bowel sounds. Absent: distended, tenderness, guarding, rebound, rigid Neurological exam: Present: alert, oriented X3, CN II-XII intact Psychiatric exam: Present: normal affect, normal mood Skin exam: Present: warm, dry, intact, normal color. Absent: rash Course Vital Signs 01/06/18 01/06/18 18:23 23:09 Temperature 98.7 F 98 F Pulse Rate 90 88 Respiratory 18 18 Rate Blood Pressure 122/68 125/68 O2 Sat by Pulse 100 98 Oximetry Medical Decision Making - Medical Decision Making 22-year-old female patient presented to the emergency department today for evaluation of the left lower quadrant abdominal pain and mid low back pain. Physical examination is relatively unremarkable. Labs reviewed and were unremarkable. Urinalysis did show presence of bacteria in the urine. Patient is asymptomatic however given her we will treat her for this. Ultrasound was obtained and showed no acute process. Patient will be attempted to establish with Dr. Kuhn for OBGYN. Return parameters were discussed in detail. She verbalizes understanding and agrees with this plan. - Lab Data Result diagrams: 01/06/18 19:30 01/06/18 19:30 Lab Results 01/06/18 01/06/18 01/06/18 Range/Units 19:30 19:30 19:30 WBC 11.3 H (3.8-10.6) k/uL RBC 4.33 (3.80-5.40) m/uL Hgb 12.1 (11.4-16.0) gm/dL Hct 36.9 (34.0-46.0) % MCV 85.2 (80.0-100.0) fL MCH 28.0 (25.0-35.0) pg MCHC 32.9 (31.0-37.0) g/dL RDW 14.8 (11.5-15.5) % Plt Count 261 (150-450) k/uL Neutrophils % 69 % Lymphocytes % 22 % Monocytes % 4 % Eosinophils % 4 % Basophils % 1 % Neutrophils # 7.8 H (1.3-7.7) k/uL Lymphocytes # 2.4 (1.0-4.8) k/uL Monocytes # 0.4 (0-1.0) k/uL Eosinophils # 0.5 (0-0.7) k/uL Basophils # 0.1 (0-0.2) k/uL Sodium 137 (137-145) mmol/L Potassium 3.8 (3.5-5.1) mmol/L Chloride 105 (98-107) mmol/L Carbon Dioxide 22 (22-30) mmol/L Anion Gap 10 mmol/L BUN 10 (7-17) mg/dL Creatinine 0.50 L (0.52-1.04) mg/dL Est GFR (CKD-EPI)AfAm >90 (>60 ml/min/1.73 sqM) Est GFR (CKD-EPI)NonAf >90 (>60 ml/min/1.73 sqM) Glucose 77 (74-99) mg/dL Calcium 9.1 (8.4-10.2) mg/dL Total Bilirubin 0.3 (0.2-1.3) mg/dL AST 19 (14-36) U/L ALT 22 (9-52) U/L Alkaline Phosphatase 76 (38-126) U/L Total Protein 7.3 (6.3-8.2) g/dL Albumin 3.9 (3.5-5.0) g/dL Amylase 89 (30-110) U/L Lipase 120 (23-300) U/L Urine Color Yellow Urine Appearance Cloudy H (Clear) Urine pH 7.0 (5.0-8.0) Ur Specific [place] 1.018 (1.001-1.035) Urine Protein Negative (Negative) Urine Glucose (UA) Negative (Negative) Urine Ketones Negative (Negative) Urine Blood Negative (Negative) Urine Nitrite Negative (Negative) Urine Bilirubin Negative (Negative) Urine Urobilinogen <2.0 (<2.0) mg/dL Ur Leukocyte Esterase Small H (Negative) Urine RBC <1 (0-5) /hpf Urine WBC 4 (0-5) /hpf Ur Squamous Epith Cells 3 (0-4) /hpf Urine Bacteria Occasional H (None) /hpf Urine Mucus Rare H (None) /hpf - Radiology Data Radiology results: report reviewed ultrasound was obtained. Report was reviewed in its entirety. There is a viable intrauterine measuring 18 weeks 0 days. Estimated date of delivery is 06/09/2018. Heart rate is 155. Impression by Dr. Cat shows no complicating process seen. Disposition Clinical Impression: Abdominal pain during , Bacteriuria during Disposition: HOME SELF-CARE Condition: Good Instructions: Urinary Tract Infection in Women (ED), Abdominal Pain in (ED) Additional Instructions: Increase fluids. Take medications as instructed. Follow-up with [facility]ACHINE [facility]PERATOR for recheck as soon as possible. Return here immediately for any new, worsening, or concerning symptoms. Prescriptions: Cephalexin [Keflex] 500 mg PO Q6H #20 cap Is patient prescribed a controlled substance at d/c from ED?: No Referrals: Kishore Zamudio Jr, DO [Primary Care Provider] - 1-2 days Marsha Kuhn MD [STAFF PHYSICIAN] - 1-2 days Time of Disposition: 21:40
[2018-01-06 19:41] LABS: Basophils # (A) 0.1 k/uL (0-0.2); Basophils % (A) 1 %; Eosinophils # (A) 0.5 k/uL (0-0.7); Eosinophils % (A) 4 %; HCT 36.9 % (34.0-46.0); HGB 12.1 gm/dL (11.4-16.0); Lymphocytes # (A) 2.4 k/uL (1.0-4.8); Lymphocytes % (A) 22 %; MCHC 32.9 g/dL (31.0-37.0); MCV 85.2 fL (80.0-100.0); Mean Platelet Volume 7.2; Monocytes # (A) 0.4 k/uL (0-1.0); Monocytes % (A) 4 %; Neutrophils # (A) 7.8 k/uL (1.3-7.7); Neutrophils % (A) 69 %; Platelet Count 261 k/uL (150-450); RBC 4.33 m/uL (3.80-5.40); RDW 14.8 % (11.5-15.5); WBC 11.3 k/uL (3.8-10.6)
[2018-01-06 19:45] LABS: Appearance,Urine Cloudy (Clear); Bacteria,Urine Occasional /hpf; Bilirubin,Urine Negative (Negative); Blood,Urine Negative (Negative); Color,Urine Yellow; Glucose,Urine (UA) Negative (Negative); Ketones,Urine Negative (Negative); Leukocyte Esterase,Urine Small (Negative); Mucus,Urine Rare /hpf; Nitrite,Urine Negative (Negative); Protein,Urine Negative (Negative); RBC,Urine <1 /hpf (0-5); Specific Gravity,Urine 1.018 (1.001-1.035); Squamous Epithelial Cell,Urine 3 /hpf (0-4); Urobilinogen,Urine <2.0 mg/dL (<2.0); WBC,Urine 4 /hpf (0-5)
[2018-01-06 19:50] LABS: ALT 22 U/L (9-52); AST 19 U/L (14-36); Albumin 3.9 g/dL (3.5-5.0); Alkaline Phosphatase 76 U/L (38-126); Amylase 89 U/L (30-110); Anion Gap 10 mmol/L; Blood Urea Nitrogen 10 mg/dL (7-17); Calcium 9.1 mg/dL (8.4-10.2); Carbon Dioxide 22 mmol/L (22-30); Chloride 105 mmol/L (98-107); Glucose 77 mg/dL (74-99); Lipase 120 U/L (23-300); Potassium 3.8 mmol/L (3.5-5.1); Sodium 137 mmol/L (137-145); Total Bilirubin 0.3 mg/dL (0.2-1.3); Total Protein 7.3 g/dL (6.3-8.2)
--- NOTE | 2018-01-06 20:33 | US ---
EXAMINATION TYPE: US OB >= 14 wk fetus DATE OF EXAM: 01/06/2018 COMPARISON: None CLINICAL HISTORY: PainPain TECHNIQUE: Transabdominal (TA) GESTATIONAL AGE / DATING Physician Established: Not yet established Dates by LMP: LMP unknown Dates by First Scan: No previous this is first scan Dates by Current Scan: (18 weeks/0 days) EDC: 06/09/2018 Beta HCG (if available): Not available at this time SURVEY IUP: Single PLACENTA: Anterior PREVIA: No Previa ISMAEL: 11.7 cm Normal CERVICAL LENGTH (transabdominal: norm > 3.0cm): 3.4 cm BIOMETRY PRESENTATION: Vertex LIE: Longitudinal BPD: 3.89 cm 17 weeks / 6 days HC: 14.99 cm 18 weeks / 0 days AC: 12.88 cm 18 weeks / 3 days FL: 2.59 cm 17 weeks / 6 days ESTIMATED WEIGHT IN GRAMS: 225.92 grams ESTIMATED WEIGHT IN LBS/OZ: 0 lbs. 8 oz. HC/AC: 1.16cm Normal FL/AC: 20.09 Normal HEART RATE: 155 bpm RHYTHM: Normal Viable IUP 18w0d CHANELLE 06/09/2018 HR 155 BPM IMPRESSION: No complicating process seen.
[2018-01-06 23:11] VITALS: BP 125/68; PULSE 88; TEMP 98
== END 2018-01-06 22:00 | disposition home or self-care (01) ==
LOC: EC 18:07
DX: O26.892 Other specified pregnancy related conditions, second trimester (principal); R10.32 Left lower quadrant pain; O99.89 Other specified diseases and conditions complicating pregnancy, childbirth and the puerperium; R82.71 Bacteriuria; Z3A.18 18 weeks gestation of pregnancy; Z91.011 Allergy to milk products; Z91.040 Latex allergy status
CPT/HCPCS: 36415; 76805; 80053; 81001; 82150; 83690; 85025; 87086; 96360; 99284

== ENCOUNTER 2018-02-07 14:10 | Outpatient (CLI) | payer SELFPAY ==
[2018-02-07 16:17] VITALS: BP 130/64; PULSE 86; RESP 16; TEMP 98.4
--- NOTE | 2018-02-14 08:42 | P.MSEPDOC ---
Presenting Problems - Arrival Data Date of Arrival on Unit: 02/07/18 Time of Arrival on Unit: 14:10 Mode of Transport: Ambulatory - Complaint OB-Reason for Admission/Chief Complaint: Vaginal Bleeding Comment: pt states had Dr Kuhn for last 2 babies. vag deliveries. last baby 1 year old. states had placenta previa with that preg at around 16 weeks that resolved by delivery. so she was able to vag deliver. had intercourse last night. put towel between legs and. did not get up until this am when she discovered the towel was covered in bright red. blood that soaked thru to other side of towel. states no care this preg. recently moved back to area. Care with prior under last names of "Ifrah" and "Johnny" Medical History - Information : 3 Para: 2 Term: 0 : 0 Abortions: Spontaneous or Elective: 0 Number of Living Children: 2 - Gestational Age Gestational Age by CHANELLE (wks/days): 22 Weeks and 4 Days - History Complications: No Care Review of Systems - Review of Systems Constitutional: No problems Breast: No problems ENT: No problems Cardiovascular: No problems Respiratory: No problems Gastrointestinal: No problems Genitourinary: No problems Musculoskeletal: No problems Neurological: No problems Skin: No problems Comment: brown spotting noted on pts underware Vital Signs - Temperature Temperature: 98.4 F Temperature Source: Oral - Pulse Right Pulse Rate: 86 Pulse Assessment Method: Automatic Cuff - Respirations Respiratory Rate: 16 Oxygen Delivery Method: Room Air O2 Sat by Pulse Oximetry: 99 - Blood Pressure Right Arm Blood Pressure: 130/64 Blood Pressure Mean: 86 Blood Pressure Source: Automatic Cuff Medical Screen Scoring (Pre) - Cervical Exam Dilation: Exam Deferred Effacement: Exam Deferred - Uterine Contractions Frequency: N/A Duration: N/A Intensity: N/A - Maternal Vital Signs Maternal Temperature: N/A Maternal Blood Pressure: N/A Signs of Preeclampsia: N/A Maternal Respirations: N/A - Pain Assessment Pain Scale Used: Numeric (1 - 10) Pain Intensity: 0 Pain Management Goal: 0 - Maternal Trauma Maternal Trauma: N/A - Assessment Baseline FHR: 160 - Total Score Total Score (Pre): 0 - Level of Risk Level of Risk: Low (0-5) Physician Notification (Pre) - Physician Notified Physician Notified Date: 02/07/18 Physician Notified Time: 15:33 Physician/Practitioner Notifed:: Dr Cabezas Spoke With: Dr Cabezas New Order Received: Yes - Notification Comment Comment: Diamante Cabezas notified of pts reason for visit bleeding as described above, preg. history 2 vag deliveries with 1 resolved plactnal previa. OB ultrasound from er visit. 01-[address] Casarez looking for records from prior pregnancies at office. pt. to remain here for about another 30-45 min for observation for more bleeding, then will. report back to Dr Cabezas clean ronn pad placed on pt. [id number] Dr Cabezas updated with slight brownish spotting on ronn pad. no cramping, no. pain. order to discharge pt with instructions for pelvic rest until seen by OB . Pt. is to follow up with Marj at [facility] to be sure is selecting the [facility] for her. medicaid carrier then she will be able to schedule appt with Dr Kuhn for care. Advised to go this week Disposition - Disposition OB Disposition: Physician follow up in office (Patient to reestablish with Dr. Kuhn) Discharge Date: 02/07/18 Discharge Time: 15:35 I agree with the RN Medical Screening Exam: Yes Risk & Benefit of care provided described in d/c instruction: Yes Diagnosis: FALSE LABOR BEFORE 37 COMPLETED WEEKS OF GEST, THIRD TRI
== END 2018-02-07 15:35 | disposition home or self-care (01) ==
LOC: FBPOP 14:10
PROVIDERS: ATTEND Obstetrics & Gynecology
DX: O47.02 False labor before 37 completed weeks of gestation, second trimester (principal); Z3A.22 22 weeks gestation of pregnancy
CPT/HCPCS: 99213

== ENCOUNTER → 2018-04-23 | Outpatient (CLI) | payer SELFPAY ==
[2018-04-24 11:36] LABS: Appearance,Urine Cloudy (Clear); Bacteria,Urine Rare /hpf; Bilirubin,Urine Negative (Negative); Blood,Urine Negative (Negative); Color,Urine Yellow; Glucose,Urine (UA) Negative (Negative); Hyaline Casts,Urine 2 /lpf (0-2); Ketones,Urine Negative (Negative); Leukocyte Esterase,Urine Small (Negative); Mucus,Urine Few /hpf; Nitrite,Urine Negative (Negative); PH, Urine 6.5 (5.0-8.0); Protein,Urine 1+ (Negative); RBC,Urine 2 /hpf (0-5); Specific Gravity,Urine 1.021 (1.001-1.035); Squamous Epithelial Cell,Urine 2 /hpf (0-4); Urobilinogen,Urine <2.0 mg/dL (<2.0); WBC,Urine 5 /hpf (0-5)
== END ==
LOC: FBPOP 18:08
PROVIDERS: ATTEND Obstetrics & Gynecology
DX: O47.1 False labor at or after 37 completed weeks of gestation (principal); Z3A.38 38 weeks gestation of pregnancy
CPT/HCPCS: 59025; 81001; 99213

== ENCOUNTER 2018-06-05 07:35 | Inpatient (IN) | payer OTHER ==
[2018-06-05] MEDS ORDERED: CARBOPROST TROMETHAMINE 250 MCG/ML 1 ML AMP IM PRN (07:49)
[2018-06-05] MEDS ORDERED: OXYTOCIN 10 UNIT/ML 1 ML VIAL IM PRN (07:49)
[2018-06-05] MEDS ORDERED: AMPICILLIN 2,000 MG in SODIUM CHLORIDE 0.9% 100 ML IVPB STA (07:49)
[2018-06-05] MEDS ORDERED: TERBUTALINE 1 MG/ML VIAL SQ PRN (07:49)
[2018-06-05] MEDS ORDERED: LIDOCAINE 0.5% (PF) 5 MG/ML (50 ML SDV) SQ PRN (07:49)
[2018-06-05] MEDS ORDERED: METHYLERGONOVINE 0.2 MG/ML 1 ML AMP IM PRN (07:49)
[2018-06-05] MEDS ORDERED: LACTATED RINGERS 1,000 ML IV SCH (08:00)
[2018-06-05 08:22] LABS: Anisocytosis Slight; Basophils # (A) 0.1 k/uL (0-0.2); Basophils % (A) 1 %; Eosinophils # (A) 0.1 k/uL (0-0.7); Eosinophils % (A) 1 %; HGB 8.9 gm/dL (11.4-16.0); Hypochromasia Marked; Lymphocytes # (A) 2.2 k/uL (1.0-4.8); Lymphocytes % (A) 22 %; MCH 22.5 pg (25.0-35.0); MCHC 29.8 g/dL (31.0-37.0); MCV 75.4 fL (80.0-100.0); Mean Platelet Volume 7.5; Microcytosis Moderate; Monocytes # (A) 0.5 k/uL (0-1.0); Monocytes % (A) 5 %; Neutrophils % (A) 70 %; Platelet Count 246 k/uL (150-450); Poikilocytosis Slight; RBC 3.97 m/uL (3.80-5.40); RDW 18.4 % (11.5-15.5); WBC 9.9 k/uL (3.8-10.6)
[2018-06-05] MEDS ORDERED: BUTORPHANOL 1 MG/ML 1 ML VIAL IV PRN (09:23)
[2018-06-05 09:32] VITALS: BMI 33.3
[2018-06-05] MEDS ORDERED: LANOLIN CREAM 5 GM TUBE TOPICAL PRN (09:36)
[2018-06-05] MEDS ORDERED: diphenhydrAMINE 50 MG CAP PO PRN (09:36)
[2018-06-05] MEDS ORDERED: diphenhydrAMINE 25 MG CAP PO PRN (09:36)
[2018-06-05] MEDS ORDERED: BENZOCAINE/MENTHOL SPRAY 1 GM/SPRAY AEROSOL TOPICAL PRN (09:36)
[2018-06-05] MEDS ORDERED: ZOLPIDEM 5 MG TAB PO PRN (09:36)
[2018-06-05] MEDS ORDERED: SIMETHICONE 80 MG CHEWABLE PO PRN (09:36)
[2018-06-05] MEDS ORDERED: WITCH HAZEL 1 EACH MED..PAD TOPICAL PRN (09:36)
[2018-06-05] MEDS ORDERED: HYDROCORTISONE 2.5% RECTAL CREAM 30 GM TUBE RECTAL PRN (09:36)
[2018-06-05] MEDS ORDERED: diphenhydrAMINE 50 MG/ML 1 ML VIAL IVP PRN ×2 (09:36)
--- NOTE | 2018-06-05 09:42 | P.HPOB ---
History of Present Illness H&P Date: 06/05/18 Chief Complaint: IUP at 39 and 5/sevenths weeks active labor, GBS positive This is a 23-year-old 3 para 2001 at 39-5/7 weeks that presents to labor and delivery in active labor. On initial exam patient was noted to be 8 cm dilated. Patient states she has noted good movement denies loss of fluid. She states contractions started around 4:30 this morning. Patient has been receiving routine care with Dr. Kuhn. She was noted have gestational anemia and has been on iron treatment in addition to her vitamin. On blood work blood type is noted to be A+, rubella immune, GC surface antigen negative, HIV negative, RPR nonreactive, GBS positive Review of Systems Constitutional: Reports fatigue, Denies chills, Denies fever Ears, nose, mouth and throat: Denies headache Cardiovascular: Reports leg edema Respiratory: Denies dyspnea Gastrointestinal: Denies constipation, Denies diarrhea, Denies nausea, Denies vomiting Genitourinary: Reports Past Medical History Past Medical History: No Reported History Additional Past Medical History / Comment(s): anxiety History of Any Multi-Drug Resistant Organisms: None Reported Past Surgical History: No Surgical Hx Reported Past Anesthesia/Blood Transfusion Reactions: No Reported Reaction Past Psychological History: Anxiety, Depression Additional Psychological History / Comment(s): plans to take Zoloft after delivery Smoking Status: Never smoker Past Alcohol Use History: None Reported Past Drug Use History: None Reported Additional Drug Use History / Comment(s): Pt. states she smoked marijuana daily before she got . Pt. states she smoked a week ago because on Nausea. Pt. states she had morning sickness but it has subsided - Past Family History Mother Family Medical History: Cancer Additional Family Medical History / Comment(s): cervical cancer Father Family Medical History: No Reported History Brother(s) Family Medical History: No Reported History Sister(s) Family Medical History: No Reported History Medications and Allergies Home Medications Medication Instructions Recorded Confirmed Type Cephalexin [Keflex] 500 mg PO Q6H #20 cap 01/06/18 Rx Allergies Allergy/AdvReac Type Severity Reaction Status Date / Time milk Allergy Nausea & Verified 01/06/18 19:03 Vomiting & Diarrhea latex AdvReac Rash/Hives Verified 01/06/18 19:03 Exam Osteopathic Statement: *. No significant issues noted on an osteopathic structural exam other than those noted in the History and Physical/Consult. Vital Signs Pulse Resp BP 06/05/18 09:32 94 16 140/61 Intake and Output 06/04/18 06/05/18 06/05/18 21:59 06:59 14:59 Other: Weight 82.554 kg Targeted physical exam is performed on this date in general this is a well- nourished well-developed female in active labor, she notes nonlabored breathing, heart is noted to have a regular rate and rhythm her abdomen is gravid and appropriate for gestational age, on cervical exam she has 9100/-1 Results Result Diagrams: 06/05/18 08:09 Abnormal Lab Results - Last 24 Hours (Table) 06/05/18 Range/Units 08:09 Hgb 8.9 L (11.4-16.0) gm/dL Hct 30.0 L (34.0-46.0) % MCV 75.4 L (80.0-100.0) fL MCH 22.5 L (25.0-35.0) pg MCHC 29.8 L (31.0-37.0) g/dL RDW 18.4 H (11.5-15.5) %
--- NOTE | 2018-06-05 09:43 | P.PROBDLV ---
Vaginal Delivery Note - . Vaginal Delivery Note: This 23-year-old 3 para 2001 presented to labor and delivery in active labor, patient was noted to be 8 cm on admission. Patient progressed through labor to complete initially refusing to push eventually feeling the urge to push and had a normal spontaneous vaginal delivery of a viable male infant at 912, weight of 9 and 5, with Apgars of 8 and 9 at one and 5 minutes respectively. After a two-minute delayed the umbilical cord was doubly clamped and cut and the was handed off to mom. The placenta was delivered spontaneously intact with a three-vessel cord being noted. The vaginal vault was inspected and no lacerations were noted. The uterus sounded to be firm and below the umbilicus, estimated blood loss for this delivery 300 mL. Next para patient and tolerated delivery well and are resting comfortably.
[2018-06-05] MEDS ORDERED: OXYTOCIN 20 UNITS/1000 ML NS 1,000 ML IV SCH (09:45)
[2018-06-05] MEDS ORDERED: AMPICILLIN 1,000 MG in SODIUM CHLORIDE 0.9% 50 ML IVPB SCH (12:00)
[2018-06-05] MEDS: IBUPROFEN 600 MG TAB PO PRN ×2 (15:32→22:08)
[2018-06-05] MEDS: ACETAMINOPHEN TAB 325 MG TAB PO PRN (20:27)
[2018-06-06] MEDS: SENNOSIDES-DOCUSATE SODIUM 1 EACH TAB PO SCH ×3 (00:44→19:52)
[2018-06-06] MEDS: IBUPROFEN 600 MG TAB PO PRN ×3 (04:33→18:18)
[2018-06-06 07:24] LABS: Anisocytosis Slight; Basophils # (A) 0.1 k/uL (0-0.2); Basophils % (A) 1 %; Eosinophils # (A) 0.2 k/uL (0-0.7); Eosinophils % (A) 2 %; HCT 24.3 % (34.0-46.0); HGB 7.6 gm/dL (11.4-16.0); Hypochromasia Marked; Lymphocytes # (A) 2.3 k/uL (1.0-4.8); Lymphocytes % (A) 24 %; MCH 23.5 pg (25.0-35.0); MCHC 31.3 g/dL (31.0-37.0); MCV 74.9 fL (80.0-100.0); Mean Platelet Volume 7.6; Microcytosis Moderate; Monocytes # (A) 0.4 k/uL (0-1.0); Monocytes % (A) 5 %; Neutrophils # (A) 6.7 k/uL (1.3-7.7); Neutrophils % (A) 68 %; Platelet Count 185 k/uL (150-450); Poikilocytosis Slight; RBC 3.25 m/uL (3.80-5.40); RDW 18.9 % (11.5-15.5); WBC 9.8 k/uL (3.8-10.6)
--- NOTE | 2018-06-06 07:56 | P.PN ---
Subjective Progress Note Date: 06/06/18 Principal diagnosis: day #1 Slept well, moderate lochia rubra, good pain control. Objective - Vital Signs Vital signs: Vital Signs Temp 98 F 06/06/18 00:00 Pulse 83 06/06/18 00:00 Resp 15 06/06/18 00:00 BP 135/63 06/06/18 00:00 Pulse Ox Intake & Output 06/05/18 06/06/18 06/06/18 18:59 06:59 18:59 Weight 82.554 kg Other: # Voids 1 - Constitutional General appearance: Present: average body habitus, cooperative - EENT Eyes: Present: PERRLA ENT: Present: hearing grossly normal - Respiratory Respiratory: bilateral: CTA - Cardiovascular Rhythm: regular - Gastrointestinal General gastrointestinal: Present: normal bowel sounds - Integumentary Integumentary: Present: normal - Neurologic Neurologic: Present: CNII-XII intact - Musculoskeletal Musculoskeletal: Present: gait normal, strength equal bilaterally - Psychiatric Psychiatric: Present: A&O x's 3, appropriate affect, intact judgment & insight - Labs CBC & Chem 7: 06/06/18 07:04 Labs: Abnormal Lab Results - Last 24 Hours (Table) 06/05/18 06/06/18 Range/Units 08:09 07:04 RBC 3.25 L (3.80-5.40) m/uL Hgb 8.9 L 7.6 L (11.4-16.0) gm/dL Hct 30.0 L 24.3 L (34.0-46.0) % MCV 75.4 L 74.9 L (80.0-100.0) fL MCH 22.5 L 23.5 L (25.0-35.0) pg MCHC 29.8 L (31.0-37.0) g/dL RDW 18.4 H 18.9 H (11.5-15.5) % Assessment and Plan Assessment: Doing well day #1 Plan: Infant is to stay secondary to antibiotic necessity for positive group B strep status. Therefore anticipate discharge home tomorrow. Circumcision at this t drew. Continue care. Time with Patient: Less than 30
[2018-06-06] MEDS: ACETAMINOPHEN TAB 325 MG TAB PO PRN (08:18)
[2018-06-06] MEDS ORDERED: FAMOTIDINE 20 MG TAB PO STA (09:07)
[2018-06-07] MEDS: IBUPROFEN 600 MG TAB PO PRN (08:20)
[2018-06-07 09:53] VITALS: BP 137/69; PULSE 74; RESP 18; TEMP 98.4
[2018-06-07] MEDS: SENNOSIDES-DOCUSATE SODIUM 1 EACH TAB PO SCH (09:53)
--- NOTE | 2018-06-07 10:30 | P.DS ---
Providers Date of admission: 06/05/18 07:41 Expected date of discharge: 06/07/18 Attending physician: Marsha Kuhn Primary care physician: Stated None Hospital Course: This is a 23-year-old white female 3 para 2002 EDC 06/07/2018 at 39-5/7 weeks' gestation. Patient presented with a history of strong regular uterine contractions in active labor. Her was remarkable for chronic anemia, blood type A positive, rubella status immune, and positive group B strep cultures. Please see dictated history and physical for details. Artificial amniorrhexis revealed clear fluid. Patient went on to deliver vaginally a liveborn male infant with scores of 8 and 9 at one and 5 minutes respectively. weighed 9 lbs. 5 oz. or 4215 g. No perineal lacerations were encountered. Trivascular cord was noted. Please see dictated delivery note for details. was circumcised. He has been cleared for discharge home after antibiotics secondary to history of positive group B strep. Patient herself is doing well, she is voiding ambulating and passing flatus without difficulty. Admitting hemoglobin 8.6, repeat 7.9. Patient is hemodynamically stable. Breasts are not engorged. Fundus is firm and in the midline, symmetric and 18 week size. Extremities are negative for edema. Patient does have a bruise on both upper extremities from IV start attempts. They are stable and only slightly tender. Patient is being discharged home today in very good condition. She will continue taking an [id number]-dotjurh iron pill daily, as well as her vitamin daily. I've asked her to use Advil, Motrin or Aleve as needed for pain. She is requesting tubal ligation and we will likely schedule this within the next 6-12 weeks. No intercourse, tampons or douching. Call with any fevers shakes or chills, foul smelling or copious lochia, with the passage of large blood clots, with any pain not alleviated by [id number] products, or indeed with any concerns. Patient Condition at Discharge: Good Plan - Discharge Summary Discharge Rx Participant: No New Discharge Prescriptions: No Action Pnv,Calcium 72/Iron/Folic Acid [ Plus Tablet] 1 tablet PO Discharge Medication List Pnv,Calcium 72/Iron/Folic Acid [ Plus Tablet] 1 tablet PO 06/05/18 [History] Discharge Disposition: HOME SELF-CARE
== END 2018-06-07 16:55 | disposition home or self-care (01) | DRG 807 ==
LOC: FBPOP 07:35 → 4FBP 07:41
PROVIDERS: ADMIT Obstetrics & Gynecology Obstetrics; ATTEND Obstetrics & Gynecology
PROC: 10E0XZZ Delivery of Products of Conception, External Approach (ICD-10-PCS; principal; 2018-06-05)
DX: O99.824 Streptococcus B carrier state complicating childbirth (principal); Z37.0 Single live birth; O99.344 Other mental disorders complicating childbirth; O99.02 Anemia complicating childbirth; F41.9 Anxiety disorder, unspecified; F32.9 Major depressive disorder, single episode, unspecified; D64.9 Anemia, unspecified; Z3A.39 39 weeks gestation of pregnancy; Z80.49 Family history of malignant neoplasm of other genital organs
CPT/HCPCS: 85025; 86850; 86900; 86901

== ENCOUNTER → 2018-08-15 | Outpatient (CLI) | payer OTHER ==
[2018-08-15 17:01] LABS: Anisocytosis Slight; Basophils # (A) 0.1 k/uL (0-0.2); Basophils % (A) 1 %; Eosinophils # (A) 0.2 k/uL (0-0.7); Eosinophils % (A) 4 %; HCT 38.6 % (34.0-46.0); HGB 11.7 gm/dL (11.4-16.0); Hypochromasia Moderate; Lymphocytes # (A) 1.9 k/uL (1.0-4.8); Lymphocytes % (A) 37 %; MCHC 30.2 g/dL (31.0-37.0); MCV 76.3 fL (80.0-100.0); Microcytosis Slight; Monocytes # (A) 0.3 k/uL (0-1.0); Monocytes % (A) 5 %; Neutrophils # (A) 2.6 k/uL (1.3-7.7); Neutrophils % (A) 50 %; Platelet Count 356 k/uL (150-450); RBC 5.06 m/uL (3.80-5.40); RDW 17.8 % (11.5-15.5); WBC 5.2 k/uL (3.8-10.6)
== END ==
LOC: LABPAT 16:01
PROVIDERS: ATTEND Obstetrics & Gynecology
DX: Z01.812 Encounter for preprocedural laboratory examination (principal); Z31.84 Encounter for fertility preservation procedure
CPT/HCPCS: 85025

== ENCOUNTER 2018-08-16 09:03 | Day surgery (SDC) | payer OTHER ==
[2018-08-11 14:33] VITALS: BMI 29.2
[~2018-08-16 09:03] MED LIST: DEXAMETHASONE SOD PHOSPHATE 10 MG/ML 1 ML VIAL IV ONE; LACTATED RINGERS 1,000 ML IV SCH; LIDOCAINE 1% 20 ML VIAL (10MG/ML) FOR IV START INTRADERMA PRN; MIDAZOLAM 2 MG/2 ML VIAL IV PRN; Pre Op ABX Message 1 EACH MISC MISCELLANE ONE; SCOPOLAMINE 1.5MG/72HR PATCH TRANSDERM ONE
[2018-08-16 09:39] VITALS: RESP 16
[2018-08-16] MEDS: ONDANSETRON 4 MG/2 ML VIAL IVP ONE ×2 (09:49→11:50)
[2018-08-16] MEDS ORDERED: fentaNYL (PF) 50 MCG/ML 2 ML AMP ONE (10:41)
[2018-08-16] MEDS ORDERED: NEOSTIGMINE 1 MG/ML 10 ML VIAL ONE (10:41)
[2018-08-16] MEDS ORDERED: GLYCOPYRROLATE 0.2 MG/ML 2 ML VIAL ONE (10:41)
[2018-08-16] MEDS ORDERED: MIDAZOLAM 2 MG/2 ML VIAL ONE (10:41)
[2018-08-16] MEDS ORDERED: PROPOFOL 10 MG/ML 20 ML VIAL IV ONE (10:41)
[2018-08-16] MEDS ORDERED: ROCURONIUM BROMIDE 10 MG/ML 10 ML VIAL IV ONE (10:41)
[2018-08-16] MEDS ORDERED: KETOROLAC 30 MG/ML 1 ML VIAL ONE (10:41)
[2018-08-16] MEDS ORDERED: BUPIVACAINE (PF) 0.25% 30 ML VIAL SQ ONE ×2 (10:58)
--- NOTE | 2018-08-16 11:23 | P.OP ---
Date of Procedure: 08/16/18 Preoperative Diagnosis: undesired fertility Postoperative Diagnosis: Same, normal-appearing ovaries bilaterally. Procedure(s) Performed: Laparoscopic tubal ligation with Filshie clips Anesthesia: NINA Surgeon: Marsha Kuhn Packaging Mechanic #1: Stated None Estimated Blood Loss (ml): 5 IV fluids (ml): 700 Urine output (ml): 100 Pathology: none sent Condition: stable Disposition: PACU Operative Findings: Normal-appearing tubes and ovaries, appendix, colon, and pelvic sidewalls. No evidence of endometriosis. Description of Procedure: Patient is brought to the operating suite where general anesthetic is administered without difficulty. She's placed in the dorsal lithotomy position. The cervix and vagina, perineal body, and abdomen are prepped and draped in usual sterile fashion. The appropriate timeout is performed to assure proper patient and procedural identification. Antibiotics are not deemed necessary. Urine hCG is negative. Speculum was placed into the vagina. Anterior lip of the cervix is grasped with an Allis clamp. Large acorn cannula is placed on the cervix and attached to the Allis clamp, speculum is removed. Bladder is drained for approximately 100 mL of clear yellow urine. Attention is now drawn to the abdominal wall. A small infraumbilical incision is made with a sharp scalpel. There is needle is placed in hanging drop technique is utilized to assure proper placement. Abdomen is insufflated under low filling pressures of approximately 6 mmHg for a total of 3.5 L of CO2 gas. There is needle is removed. The trochars placed and placement is noted to be atraumatic. A second incision is made suprapubically, and under direct visualization a smaller trocar is also placed. Entry is atraumatic. Trendelenburg position is now utilize. Uterus is elevated. The right fallopian tube is visualized in its entirety to the fimbriated end. Filshie clip is used across the isthmic portion of the tube, with care to traverse the entire diameter of the tube into the mesal salpinx. Same procedure is carried out on the left fallopian tube, clip also placed in the isthmic portion, and entire diameter of the tube is visualized to be within the clamp, into the mesal salpinx. Bilateral ovaries appear normal. Pelvic sidewalls, anterior and posterior cul-de-sacs all negative. Appendix and cecum all appeared normal, no evidence of adhesions or endometriosis. CO2 gas is now allowed to diffuse. Trochars removed under direct visualization and the fascial defects are small and hemostatically intact. 4-0 undyed Monocryl is used in a subcutaneous manner to close the skin. The incisions are injected with quarter percent Marcaine to aid in analgesia. Steri-Strips and Mastisol are applied to the wound. Instrumentation is removed from the vagina. Cervix is clean and dry. All sponge needle and enhancement counts are correct at the end of the procedure. Toradol is now given. Patient is brought back to the recovery room in very good condition with stable vital signs including a blood pressure of 137/68, pulse 68, 99% O2 saturation. Patient will follow-up with me in the office in 2 weeks.
[2018-08-16 11:32] VITALS: TEMP 97.5
[2018-08-16] MEDS: HYDROmorphone 0.5 MG/0.5 ML SYRINGE IVP PRN ×4 (11:36→12:07)
[2018-08-16] MEDS ORDERED: LACTATED RINGERS 1,000 ML IV ONE (11:53)
[2018-08-16] MEDS ORDERED: diphenhydrAMINE 50 MG/ML 1 ML VIAL IVP ONE (12:09)
[2018-08-16] MEDS ORDERED: SCOPOLAMINE 1.5MG/72HR PATCH TRANSDERM ONE (12:36)
[2018-08-16] MEDS ORDERED: IBUPROFEN 200 MG TAB PO ONE ×2 (12:58→13:15)
[2018-08-16 14:07] VITALS: BP 122/73; PULSE 69
== END 2018-08-16 14:23 | disposition home or self-care (01) ==
LOC: OR 09:03
PROVIDERS: ATTEND Obstetrics & Gynecology
DX: Z30.2 Encounter for sterilization (principal); Z91.040 Latex allergy status; Z91.011 Allergy to milk products; Z87.440 Personal history of urinary (tract) infections; Z83.49 Family history of other endocrine, nutritional and metabolic diseases; Z83.3 Family history of diabetes mellitus; Z84.89 Family history of other specified conditions
CPT/HCPCS: 58671; 81025; J2250; J1200; J1100; J2710; J2405; J3010; J1885; J2704; J1170

== ENCOUNTER 2018-12-25 10:51 | Emergency (ER) | payer OTHER ==
[2018-12-25 11:01] VITALS: RESP 18; TEMP 97.9
--- NOTE | 2018-12-25 11:09 | ED ---
General Adult HPI - General Chief complaint: Psychiatric Symptoms Stated complaint: PETITIONED BY [facility] Time Seen by Provider: 12/25/18 11:02 Source: patient, RN notes reviewed Mode of arrival: ambulatory Limitations: no limitations - History of Present Illness Initial comments: Patient is a pleasant 23-year-old female presenting to the emergency Department with complaints of depression. Patient states symptoms have been occurring secondary to multiple stressors. Patient does admit to feeling suicidal earlier this morning and did tell her mother that she had thoughts of harming herself. Patient denies any suicidal ideation at this time. Patient states she does get like this at times when she is stressed. Patient also admits to feeling anxious . No homicidal thoughts. No hallucinations. No alcohol or street drug use. No physical complaints. - Related Data Home Medications Medication Instructions Recorded Confirmed No Known Home Medications 08/11/18 12/25/18 Allergies Allergy/AdvReac Type Severity Reaction Status Date / Time milk Allergy Nausea & Verified 12/25/18 11:09 Vomiting & Diarrhea latex AdvReac Rash/Hives Verified 12/25/18 11:09 Review of Systems ROS Statement: Those systems with pertinent positive or pertinent negative responses have been documented in the HPI. ROS Other: All systems not noted in ROS Statement are negative. Constitutional: Denies: fever Eyes: Denies: eye pain ENT: Denies: ear pain Respiratory: Denies: cough Cardiovascular: Denies: chest pain Endocrine: Denies: fatigue Gastrointestinal: Denies: abdominal pain Genitourinary: Denies: dysuria Musculoskeletal: Denies: back pain Skin: Denies: rash Neurological: Denies: headache Psychiatric: Reports: as per HPI, anxiety, depression. Denies: auditory hallucinations, visual hallucinations, homicidal thoughts Past Medical History Past Medical History: No Reported History Additional Past Medical History / Comment(s): anxiety History of Any Multi-Drug Resistant Organisms: None Reported Past Surgical History: Tubal Ligation Past Anesthesia/Blood Transfusion Reactions: No Reported Reaction Past Psychological History: Anxiety, Depression Smoking Status: Never smoker Past Alcohol Use History: None Reported Past Drug Use History: None Reported - Past Family History Mother Family Medical History: Cancer Additional Family Medical History / Comment(s): cervical cancer Father Family Medical History: No Reported History Brother(s) Family Medical History: No Reported History Sister(s) Family Medical History: No Reported History General Exam Limitations: no limitations General appearance: alert, in no apparent distress Head exam: Present: normocephalic Eye exam: Present: normal appearance Neck exam: Present: normal inspection Respiratory exam: Present: normal lung sounds bilaterally Cardiovascular Exam: Present: regular rate, normal rhythm GI/Abdominal exam: Present: soft. Absent: tenderness Extremities exam: Present: normal inspection Neurological exam: Present: alert Psychiatric exam: Present: depressed, anxious Skin exam: Present: normal color Course Vital Signs 12/25/18 10:57 Temperature 97.9 F Pulse Rate 97 Respiratory 18 Rate Blood Pressure 125/77 O2 Sat by Pulse 98 Oximetry Medical Decision Making - Medical Decision Making Patient seen by mental health services with plans for discharge. Patient reevaluated by myself. Patient still denies suicidal ideation and does contract for safety. - Lab Data Lab Results 12/25/18 Range/Units 11:30 Urine Opiates Screen Not Detected (NotDetected) Ur Oxycodone Screen Not Detected (NotDetected) Urine Methadone Screen Not Detected (NotDetected) Ur Propoxyphene Screen Not Detected (NotDetected) Ur Barbiturates Screen Not Detected (NotDetected) U Tricyclic Antidepress Not Detected (NotDetected) Ur Phencyclidine Scrn Not Detected (NotDetected) Ur Amphetamines Screen Not Detected (NotDetected) U Methamphetamines Scrn Not Detected (NotDetected) U Benzodiazepines Scrn Detected H (NotDetected) Urine Cocaine Screen Not Detected (NotDetected) U Marijuana (THC) Screen Detected H (NotDetected) Disposition Clinical Impression: Depression Disposition: HOME SELF-CARE Condition: Stable Instructions (If sedation given, give patient instructions): Depression (ED), Help Prevent Suicide (ED) Additional Instructions: Please follow-up with mental health services as directed. Please also follow-up with primary care physician in the next day or 2 for recheck. Return for thoughts of self-harm, worsening symptoms or other concerns. Is patient prescribed a controlled substance at d/c from ED?: No Referrals: Kishore Zamudio Jr, DO [Primary Care Provider] - 1-2 days Time of Disposition: 12:36
[2018-12-25 11:47] LABS: Urn Cannabinoid Scrn Detected (NotDetected)
[2018-12-25 11:48] LABS: Amphetamine Screen,Urine Not Detected (NotDetected); Barbiturate Screen,Urine Not Detected (NotDetected); Benzodiazepines Screen,Urine Detected (NotDetected); Cocaine Screen,Urine Not Detected (NotDetected); Methadone Screen, Urine Not Detected (NotDetected); Opiate Screen,Urine Not Detected (NotDetected); Oxycodone Screen, Urine Not Detected (NotDetected); Phencyclidine Screen,Urine Not Detected (NotDetected); Tricyclic Antidepressant,Urine Not Detected (NotDetected)
[2018-12-25 12:49] VITALS: BP 121/74; PULSE 78
== END 2018-12-25 12:48 | disposition home or self-care (01) ==
LOC: EC 10:51
DX: F32.9 Major depressive disorder, single episode, unspecified (principal); Z91.011 Allergy to milk products; Z91.048 Other nonmedicinal substance allergy status
CPT/HCPCS: 80306; 82075; 99284

== ENCOUNTER 2019-03-27 15:59 | Inpatient (IN) | payer MEDICAID, OTHER ==
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
[2019-03-27] MEDS ORDERED: LORazepam 2 MG/ML INJ IM STA (19:19)
[2019-03-27] MEDS ORDERED: ACETAMINOPHEN TAB 325 MG TAB PO PRN (20:33)
[2019-03-27] MEDS ORDERED: MAG HYDROX/AL HYDROX/SIMETH 30 ML CUP PO PRN (20:33)
[2019-03-27] MEDS ORDERED: MAGNESIUM HYDROXIDE 2,400 MG/10 ML CUP PO PRN (20:33)
[2019-03-27] MEDS ORDERED: ZIPRASIDONE 20 MG VIAL IM PRN (20:33)
[2019-03-28 09:54] LABS: Anisocytosis Slight; Basophils # (A) 0.1 k/uL (0-0.2); Basophils % (A) 1 %; Eosinophils # (A) 0.5 k/uL (0-0.7); Eosinophils % (A) 9 %; HCT 36.5 % (34.0-46.0); HGB 11.6 gm/dL (11.4-16.0); Hypochromasia Slight; Lymphocytes # (A) 1.3 k/uL (1.0-4.8); Lymphocytes % (A) 24 %; MCH 25.2 pg (25.0-35.0); MCHC 31.8 g/dL (31.0-37.0); MCV 79.1 fL (80.0-100.0); Mean Platelet Volume 7.7; Microcytosis Slight; Monocytes # (A) 0.3 k/uL (0-1.0); Monocytes % (A) 5 %; Neutrophils # (A) 3.2 k/uL (1.3-7.7); Neutrophils % (A) 60 %; Platelet Count 282 k/uL (150-450); RBC 4.62 m/uL (3.80-5.40); RDW 16.3 % (11.5-15.5); WBC 5.4 k/uL (3.8-10.6)
[2019-03-28 10:09] LABS: ALT 12 U/L (4-34); AST 23 U/L (14-36); African American GFR (CKD) >90 (>60 ml/min/1.73 sqM); Alkaline Phosphatase 98 U/L (38-126); Anion Gap 7 mmol/L; Blood Urea Nitrogen 8 mg/dL (7-17); Calcium 9.1 mg/dL (8.4-10.2); Carbon Dioxide 25 mmol/L (22-30); Chloride 109 mmol/L (98-107); Cholesterol 163 mg/dL (<200); Glucose 100 mg/dL (74-99); HDL Cholesterol 48 mg/dL (40-60); LDL Cholesterol,Calculated 98 mg/dL (0-99); Non-African American GFR(CKD) >90 (>60 ml/min/1.73 sqM); Potassium 3.9 mmol/L (3.5-5.1); Sodium 141 mmol/L (137-145); Total Bilirubin 0.9 mg/dL (0.2-1.3); Triglycerides 84 mg/dL (<150)
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
[2019-03-28 15:35] LABS: Appearance,Urine Clear (Clear); Bilirubin,Urine Negative (Negative); Blood,Urine Trace (Negative); Color,Urine Light Yellow; Glucose,Urine (UA) Negative (Negative); Ketones,Urine Negative (Negative); Leukocyte Esterase,Urine Negative (Negative); Nitrite,Urine Negative (Negative); Protein,Urine Negative (Negative); RBC,Urine <1 /hpf (0-5); Specific Gravity,Urine 1.001 (1.001-1.035); Squamous Epithelial Cell,Urine <1 /hpf (0-4); Urobilinogen,Urine <2.0 mg/dL (<2.0); WBC,Urine 1 /hpf (0-5)
[2019-03-28 18:32] LABS: Urine Alcohol Negative (Negative); Urine Barbiturate Negative (Negative); Urine Cocaine Negative (Negative); Urine Methadone Negative (Negative); Urine Opiates Negative (Negative); Urine Phencyclidine Negative (Negative)
[2019-03-28 19:42] LABS: Hemoglobin A1C 5.1 % (4.0-6.0)
[2019-03-28] MEDS ORDERED: traZODone HCL 50 MG TAB PO SCH (21:00)
[2019-03-28] MEDS ORDERED: DIVALPROEX ER 500 MG TAB.ER.24H PO SCH (21:00)
[2019-03-28] MEDS ORDERED: IBUPROFEN 800 MG TAB PO PRN (22:51)
[2019-03-29 06:56] VITALS: TEMP 99
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
[2019-03-29] MEDS ORDERED: NAPROXEN 250 MG TAB PO SCH (12:30)
[2019-03-29] MEDS ORDERED: FAMOTIDINE 20 MG TAB PO SCH (12:30)
--- NOTE | 2019-03-29 14:13 | XR ---
EXAMINATION TYPE: XR knee complete LT DATE OF EXAM: 03/29/2019 COMPARISON: NONE HISTORY: Pain TECHNIQUE: 3 views FINDINGS: I see no fracture nor dislocation. Joint spaces are normal. There is no sign of joint effus ion. IMPRESSION: Normal left knee.
--- NOTE | 2019-03-29 14:21 | XR ---
EXAMINATION TYPE: XR facial bones complete DATE OF EXAM: 03/29/2019 COMPARISON: NONE HISTORY: Pain TECHNIQUE: 3 views FINDINGS: There is mucosal thickening in the right maxillary sinus. There is increased density at the roof of the left maxillary sinus and increased density over the left orbit. There is soft tissue swe lling over the left orbit. Mandibular ring appears intact. Nasal bone appears intact. IMPRESSION: Right maxillary sinusitis. Increased density in the superior left maxillary sinus region could relate to a blowout fracture of the left orbit. CT scan would be helpful for further evaluation if clinically indicated.
--- NOTE | 2019-03-29 14:59 | P.PN ---
Subjective Progress Note Date: 03/29/19 Chief complaint: "I am feeling better" Subjective: The patient has been seen today as follow-up, chart reviewed, case discussed with the treatment team. Patient reports poor sleep last night and attributes it to pain in her ribs and racing thoughts. Patient has been going to groups and other unit activities. Patient reports improved appetite. Patient reports continued to feeling less depressed but still reports crying spells and missing her children. She reports occasional panic attacks. The patient is compliant with her medications and denies any adverse reactions. She denies any auditory or visual hallucinations. She denies any suicidal, homicidal or paranoid ideations. Objective - Vital Signs Vital signs: Vital Signs Temp 99 F 03/29/19 06:25 Pulse 74 03/29/19 06:25 Resp 16 03/29/19 06:25 BP 112/56 03/29/19 06:25 Pulse Ox 99 03/27/19 16:55 - Exam Objective: Vitals has been reviewed. Mental status examination; Appearance: The patient appears stated age, adequately groomed and dressed, no specific features. Gait/posture: Normal gait, Normal arm swinging: No abnormal movements. Attitude and behavior: engaged, cooperative, eye contact. Motor activity: Normal psychomotor activity Speech: Normal rate, tone. Mood: Anxious, depressed. Affect: Constricted Thought form: goal-directed, linear, coherent. Thought content: Non-delusional, denies suicidal thoughts. Orientation: Patient patient was fully oriented to time place person and situation. Insight: Patient has poor insight about his psychiatric disorder. Judgment: Patient has fair judgment about his psychiatric treatment. - Labs CBC & Chem 7: 03/28/19 09:37 03/28/19 09:37 Labs: Abnormal Lab Results - Last 24 Hours (Table) 03/28/19 03/28/19 Range/Units 15:00 15:00 Urine Blood Trace H (Negative) U Benzodiazepines Scrn Positive H (Negative) ng/mL U Cannabinoids Screen Positive H (Negative) ng/mL Assessment and Plan Assessment: IMPRESSIONS: Mood disorder NOS. Rule out bipolar disorder Cannabis use disorder Rule out borderline personality disorder Plan: PLAN: Continue on suicidal precautions 1:1 support and psychotherapy Increase [Depakote ER 1000 mg PO qhs. Start Seroquel 50 mg PO qhs and 25 mg PO bid PRN Continue Trazodone 50 mg PO qhs PRN] Milieu therapy including PT, OT and GT. Adjust medications and monitor closely for the patient's symptoms getting worse and /or possible side effects on medications.
[2019-03-29] MEDS ORDERED: QUEtiapine 25 MG TAB PO PRN (15:00)
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
--- NOTE | 2019-03-29 18:09 | CT ---
EXAMINATION TYPE: CT facial bones wo con DATE OF EXAM: 03/29/2019 COMPARISON: None HISTORY: Orbital bruising CT DLP: 411.4 mGycm Automated exposure control for dose reduction was used. Multiple axial sections were obtained from the bottom of the mandible to the top of the frontal sinus es without contrast. The mandibular ring appears intact. Temporomandibular joints appear intact. Zygomatic arches appear n ormal. There is moderate mucosal thickening right maxillary sinus. There is mild mucosal thickening i n the right side ethmoid sinus. Frontal sinus appears normal. Sphenoid sinus appears normal. There is no evidence of orbital mass. Orbital margins are intact. There is mucosal thickening at the right os tiomeatal complex. There is patency of the left ostiomeatal complex. There is no evidence of a blowou t fracture. The maxilla is intact. The globes are symmetric. Nasal bone is intact. IMPRESSION: Findings are consistent with ordinary right side ethmoid and maxillary sinusitis. No fracture seen. N o evidence of a blowout fracture that is suggested by the plain film exam today.
[2019-03-29] MEDS ORDERED: SODIUM CHLORIDE 0.9% 1,000 ML IV SCH (19:15)
[2019-03-29 19:34] VITALS: BP 156/90; PULSE 101; RESP 22
--- NOTE | 2019-03-29 19:54 | CT ---
EXAMINATION TYPE: CT brain wo con DATE OF EXAM: 03/29/2019 COMPARISON: None HISTORY: Seizure CT DLP: 952.6 mGycm Automated exposure control for dose reduction was used. Ventricles have normal size. There is no mass effect nor midline shift. There is no sign of intracran ial hemorrhage. There is right maxillary sinus mucosal thickening. There is mild ethmoid sinus mucosa l thickening. IMPRESSION: Negative CT scan of the brain. Sinusitis.
[2019-03-29] MEDS ORDERED: PHENYTOIN SODIUM INJ 50 MG/ML 2 ML VIAL IVP SCH (20:00)
[2019-03-29] MEDS ORDERED: QUEtiapine 50 MG TAB PO SCH (21:00)
[2019-03-29] MEDS ORDERED: DIVALPROEX ER 500 MG TAB.ER.24H PO SCH (21:00)
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
== END 2019-03-29 19:10 | disposition short-term general hospital (02) | DRG 881 ==
LOC: EC 15:59 → 3MHU 20:27
PROVIDERS: ADMIT Psychiatry & Neurology Psychiatry; ATTEND Psychiatry & Neurology Psychiatry
DX: F32.9 Major depressive disorder, single episode, unspecified (principal); R45.851 Suicidal ideations; F41.0 Panic disorder [episodic paroxysmal anxiety]; F12.90 Cannabis use, unspecified, uncomplicated; R56.9 Unspecified convulsions; R07.81 Pleurodynia; M25.562 Pain in left knee; S00.12XA Contusion of left eyelid and periocular area, initial encounter; S00.11XA Contusion of right eyelid and periocular area, initial encounter; S00.83XA Contusion of other part of head, initial encounter; Z98.51 Tubal ligation status; Z91.041 Radiographic dye allergy status; Z91.011 Allergy to milk products; Z80.49 Family history of malignant neoplasm of other genital organs; Y04.2XXA Assault by strike against or bumped into by another person, initial encounter
CPT/HCPCS: 70150; 70450; 70486; 71111; 80053; 80061; 80306; 81001; 81025; 82075; 83036; 84443; 85025; 96372; 99285

== ENCOUNTER 2019-03-29 19:12 | Observation (INO) | payer OTHER ==
[2019-04-01 08:25] VITALS: BP 115/64; PULSE 105; RESP 20; TEMP 97.7
== END 2019-04-01 10:25 ==
LOC: INTOOBSV 19:51 → UNDOADMIN 19:51 → 3SCARD 19:51 → UNDODISIN 04-01 10:25
PROVIDERS: ADMIT Family Medicine; ATTEND Family Medicine
DX: R56.9 Unspecified convulsions (principal); R45.851 Suicidal ideations; F32.9 Major depressive disorder, single episode, unspecified; F41.9 Anxiety disorder, unspecified; R10.9 Unspecified abdominal pain; S00.11XA Contusion of right eyelid and periocular area, initial encounter; R07.89 Other chest pain; F39 Unspecified mood [affective] disorder; F12.90 Cannabis use, unspecified, uncomplicated; S80.02XA Contusion of left knee, initial encounter; V47.5XXA Car driver injured in collision with fixed or stationary object in traffic accident, initial encounter; Z98.51 Tubal ligation status; Y09 Assault by unspecified means
CPT/HCPCS: 96376; 96361 ×2; 96374; 96375 ×2; 95816; 80053; 80048; 80185; 83735 ×2; 85025 ×2; G0378 ×4; G0379; J1165 ×2; J2405; C9113

== ENCOUNTER 2019-04-01 09:50 | Inpatient (IN) | payer MEDICAID ==
[2019-04-01 11:05] VITALS: RESP 16
[2019-04-01] MEDS ORDERED: ACETAMINOPHEN TAB 325 MG TAB PO PRN (11:10)
[2019-04-01] MEDS ORDERED: MAGNESIUM HYDROXIDE 2,400 MG/10 ML CUP PO PRN (11:10)
[2019-04-01] MEDS ORDERED: MAG HYDROX/AL HYDROX/SIMETH 30 ML CUP PO PRN (11:10)
[2019-04-01] MEDS ORDERED: traZODone HCL 50 MG TAB PO PRN (11:13)
[2019-04-01] MEDS ORDERED: IBUPROFEN 600 MG TAB PO PRN (11:15)
[2019-04-01] MEDS: QUEtiapine 25 MG TAB PO PRN (12:45)
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
[2019-04-01] MEDS: PHENYTOIN SODIUM EXTENDED 100 MG CAP PO SCH ×3 (18:02→23:48)
[2019-04-01] MEDS: DIVALPROEX ER 500 MG TAB.ER.24H PO SCH (20:51)
[2019-04-01] MEDS: QUEtiapine 50 MG TAB PO SCH (20:51)
[2019-04-02] MEDS: PHENYTOIN SODIUM EXTENDED 100 MG CAP PO SCH ×2 (08:58→16:33)
[2019-04-02] MEDS: PANTOPRAZOLE 40 MG TABLET PO SCH (08:58)
[2019-04-02] MEDS: QUEtiapine 25 MG TAB PO PRN (08:59)
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
[2019-04-02 11:25] LABS: T4, Free (Free Thyroxine) 1.78 ng/dL (0.78-2.19)
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
[2019-04-02] MEDS: IRON PS CMPLX/VIT B12/FA 1 EACH CAP PO SCH (12:23)
[2019-04-02] MEDS: QUEtiapine 50 MG TAB PO SCH (20:55)
[2019-04-02] MEDS: DIVALPROEX ER 500 MG TAB.ER.24H PO SCH (20:55)
[2019-04-03] MEDS: PHENYTOIN SODIUM EXTENDED 100 MG CAP PO SCH ×4 (00:36→23:58)
[2019-04-03] MEDS: IRON PS CMPLX/VIT B12/FA 1 EACH CAP PO SCH (08:29)
[2019-04-03] MEDS: PANTOPRAZOLE 40 MG TABLET PO SCH (08:29)
[2019-04-03] MEDS: QUEtiapine 25 MG TAB PO PRN (08:30)
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
[2019-04-03] MEDS: QUEtiapine 50 MG TAB PO SCH (20:54)
[2019-04-03] MEDS: DIVALPROEX ER 500 MG TAB.ER.24H PO SCH (20:54)
[2019-04-04] MEDS: PANTOPRAZOLE 40 MG TABLET PO SCH (08:43)
[2019-04-04] MEDS: IRON PS CMPLX/VIT B12/FA 1 EACH CAP PO SCH (08:43)
[2019-04-04] MEDS: QUEtiapine 25 MG TAB PO PRN (08:44)
[2019-04-04] MEDS: PHENYTOIN SODIUM EXTENDED 100 MG CAP PO SCH ×3 (08:44→23:12)
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
[2019-04-04] MEDS ORDERED: QUEtiapine 25 MG TAB PO SCH (21:00)
[2019-04-04] MEDS: DIVALPROEX ER 500 MG TAB.ER.24H PO SCH (21:35)
[2019-04-05 07:05] VITALS: BP 118/56; PULSE 87; TEMP 97.6
[2019-04-05] MEDS: PHENYTOIN SODIUM EXTENDED 100 MG CAP PO SCH (08:26)
[2019-04-05] MEDS: PANTOPRAZOLE 40 MG TABLET PO SCH (08:26)
[2019-04-05] MEDS: IRON PS CMPLX/VIT B12/FA 1 EACH CAP PO SCH (08:26)
[2019-04-05] MEDS: QUEtiapine 25 MG TAB PO PRN (08:27)
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
== END 2019-04-05 12:46 | disposition home or self-care (01) | DRG 885 ==
LOC: 3MHU 10:27
PROVIDERS: ADMIT Psychiatry & Neurology Psychiatry; ATTEND Psychiatry & Neurology Psychiatry
DX: F31.81 Bipolar II disorder (principal); R45.851 Suicidal ideations; F13.239 Sedative, hypnotic or anxiolytic dependence with withdrawal, unspecified; G40.909 Epilepsy, unspecified, not intractable, without status epilepticus; D50.9 Iron deficiency anemia, unspecified; F41.9 Anxiety disorder, unspecified; F12.10 Cannabis abuse, uncomplicated; F60.3 Borderline personality disorder; F63.9 Impulse disorder, unspecified; S80.02XA Contusion of left knee, initial encounter; S00.12XA Contusion of left eyelid and periocular area, initial encounter; S00.11XA Contusion of right eyelid and periocular area, initial encounter; Z79.899 Other long term (current) drug therapy; Z98.51 Tubal ligation status; Z91.040 Latex allergy status; V89.2XXA Person injured in unspecified motor-vehicle accident, traffic, initial encounter; Y92.410 Unspecified street and highway as the place of occurrence of the external cause; Y09 Assault by unspecified means; Z80.49 Family history of malignant neoplasm of other genital organs
CPT/HCPCS: 80185; 84439; 84443; 84481

== ENCOUNTER 2022-11-17 17:35 | Emergency (ER) | payer OTHER ==
[2022-11-17 17:39] VITALS: BP 123/83; PULSE 69; RESP 16; TEMP 97.7
--- NOTE | 2022-11-17 18:27 | ED ---
General Adult HPI - General Chief complaint: Needlestick/Exposure Stated complaint: needle stick at work Time Seen by Provider: 11/17/22 18:00 Source: patient, RN notes reviewed Mode of arrival: ambulatory Limitations: no limitations - History of Present Illness Initial comments: 27-year-old female presents emergency Department with chief complaint of needle stick injury. She states that she was at work at [employer] she struck her left index finger with a used needle. She states that she rinsed the area. Patient reports that the source had her blood tested very recently for a similar incident and was negative for HIV, hepatitis. - Related Data Previous Rx's Medication Instructions Recorded Acetaminophen Tab [Tylenol] 650 mg PO Q6HR PRN tab 03/31/19 Phenytoin Sodium Extended 100 mg PO Q8HR cap 03/31/19 [Dilantin] Divalproex ER [Depakote ER] 1,000 mg PO HS 30 Days #60 04/05/19 tab.er.[id number] Iron Ps Cmplx/Vit B12/FA 1 each PO DAILY 30 Days #30 cap 04/05/19 [Niferex-150 Forte] QUEtiapine [SEROquel] 25 mg PO HS 30 Days #30 tab 04/05/19 Allergies Allergy/AdvReac Type Severity Reaction Status Date / Time latex AdvReac Rash/Hives Verified 04/01/19 11:19 Review of Systems ROS Statement: Those systems with pertinent positive or pertinent negative responses have been documented in the HPI. ROS Other: All systems not noted in ROS Statement are negative. Past Medical History Past Medical History: Seizure Disorder Additional Past Medical History / Comment(s): new onset seizures 03/29/19 History of Any Multi-Drug Resistant Organisms: None Reported Past Surgical History: Tubal Ligation Past Anesthesia/Blood Transfusion Reactions: No Reported Reaction Past Psychological History: Anxiety, Depression Past Alcohol Use History: None Reported Past Drug Use History: Marijuana - Past Family History Mother Family Medical History: Cancer Additional Family Medical History / Comment(s): cervical cancer Father Family Medical History: No Reported History Brother(s) Family Medical History: No Reported History Sister(s) Family Medical History: No Reported History General Exam Limitations: no limitations General appearance: alert, in no apparent distress Head exam: Present: atraumatic, normocephalic, normal inspection Eye exam: Present: normal appearance, PERRL, EOMI. Absent: scleral icterus, conjunctival injection, periorbital swelling ENT exam: Present: normal exam, mucous membranes moist Neck exam: Present: normal inspection. Absent: tenderness, meningismus, lymphadenopathy Respiratory exam: Present: normal lung sounds bilaterally. Absent: respiratory distress, wheezes, rales, rhonchi, stridor Cardiovascular Exam: Present: regular rate, normal rhythm, normal heart sounds. Absent: systolic murmur, diastolic murmur, rubs, gallop, clicks Extremities exam: Present: normal inspection, full ROM, normal capillary refill. Absent: tenderness, pedal edema, joint swelling, calf tenderness Back exam: Present: normal inspection Neurological exam: Present: alert, oriented X3 Psychiatric exam: Present: normal affect, normal mood Skin exam: Present: warm, dry, normal color, other (visible needlestick injury to left index finger) Course Vital Signs 11/17/22 17:36 Temperature 97.7 F Pulse Rate 69 Respiratory 16 Rate Blood Pressure 123/83 O2 Sat by Pulse 99 Oximetry Medical Decision Making - Medical Decision Making Was pt. sent in by a medical professional or institution (, PA, [employer], urgent care, hospital, or residential...) When possible be specific @ -No Did you speak to anyone other than the patient for history (EMS, parent, family, police, friend...)? What history was obtained from this source @ -No Did you review nursing and triage notes (agree or disagree)? Why? @ -I reviewed and agree with nursing and triage notes Were old charts reviewed (outside hosp., previous admission, EMS record, old EKG, old radiological studies, urgent care reports/EKG's, residential records)? Report findings @ -No old charts were reviewed Differential Diagnosis (chest pain, altered mental status, abdominal pain women, abdominal pain men, vaginal bleeding, weakness, fever, dyspnea, syncope, headache, dizziness, GI bleed, back pain, seizure, CVA, palpatations, mental health, musculoskeletal)? @ -not applicable EKG interpreted by me (3pts min.). @ -none X-rays interpreted by me (1pt min.). @ -None done CT interpreted by me (1pt min.). @ -None done U/S interpreted by me (1pt. min.). @ -None done What testing was considered but not performed or refused? (CT, X-rays, U/S, labs)? Why? @ -None What meds were considered but not given or refused? Why? @ -None Did you discuss the management of the patient with other professionals (professionals i.e. , PA, [employer], lab, RT, psych nurse, licensed master social worker, sander and buffer, teacher, forestry technical officer, case technician)? Give summary @ -No Was smoking cessation discussed for >3mins.? @ -No Was critical care preformed (if so, how long)? @ -No Were there social determinants of health that impacted care today? How? (Homelessness, low income, unemployed, alcoholism, drug addiction, transportation, low edu. Level, literacy, decrease access to med. care, usp, rehab)? @ -No Was there de-escalation of care discussed even if they declined (Discuss DNR or withdrawal of care, Hospice)? DNR status @ -No What co-morbidities impacted this encounter? (DM, HTN, Smoking, COPD, CAD, Cancer, CVA, ARF, Chemo, Hep., AIDS, mental health diagnosis, sleep apnea, morbid obesity)? @ -None Was patient admitted / discharged? Hospital course, mention meds given and route, prescriptions, significant lab abnormalities, going to OR and other pertinent info. @ -discharged. Patient presented to the emergency department with chief complaint of needlestick injury. Patient states that she stuck herself in the finger with a used needle. Patient states that the patients HIV and hepatitis status were checked within the last month and were negative. Needlestick paperwork and blood sent on patient. Patient discharged in stable condition. Case discussed with my attending, Dr. Kulkarni Undiagnosed new problem with uncertain prognosis? @ -No Drug Therapy requiring intensive monitoring for toxicity (Heparin, Nitro, Insulin, Cardizem)? @ -No Were any procedures done? @ -No Diagnosis/symptom? @ -[needlestick injury Acute, or Chronic, or Acute on Chronic? @ -Acute Uncomplicated (without systemic symptoms) or Complicated (systemic symptoms)? @ -Uncomplicated Side effects of treatment? @ -No Exacerbation, Progression, or Severe Exacerbation? @ -No Poses a threat to life or bodily function? How? (Chest pain, [place], [place], pneumonia, PE, COPD, DKA, ARF, appy, cholecystitis, CVA, Diverticulitis, Homicidal, Suicidal, threat to staff... and all critical care pts) @ -No Disposition Clinical Impression: Needlestick injury accident Disposition: HOME SELF-CARE Condition: Stable Instructions (If sedation given, give patient instructions): Needle Stick Injuries (ED) Is patient prescribed a controlled substance at d/c from ED?: No Referrals: Kishore Zamudio Jr, DO [Primary Care Provider] - 1-2 days
[2022-11-18 02:24] LABS: Hepatitis B Surface AB- Quant 3.5 mIU/mL; Hepatitis B Surface Antigen Nonreactive; Hepatitis C IgG Antibody Nonreactive
[2022-11-18 07:24] LABS: HIV 2 AB Non-Reactive (Non-Reactive); HIV AB P24 Non-Reactive (Non-Reactive); HIV P24 AG Non-Reactive (Non-Reactive)
== END 2022-11-17 18:56 | disposition home or self-care (01) ==
LOC: EC 17:35
DX: S61.231A Puncture wound without foreign body of left index finger without damage to nail, initial encounter (principal); G40.909 Epilepsy, unspecified, not intractable, without status epilepticus; F41.9 Anxiety disorder, unspecified; F32.A Depression, unspecified; F12.90 Cannabis use, unspecified, uncomplicated; Z79.899 Other long term (current) drug therapy; Z91.040 Latex allergy status; W46.0XXA Contact with hypodermic needle, initial encounter; Y99.0 Civilian activity done for income or pay
CPT/HCPCS: 36415; 86706; 86803; 87340; 87390; 99283

== ENCOUNTER 2024-03-24 12:24 | Inpatient (IN) | payer MEDICAID, OTHER ==
--- NOTE | 2024-03-24 13:35 | ED ---
Psych HPI - General Source: patient, police, RN notes reviewed Mode of arrival: ambulatory Limitations: no limitations <Gisele Bustos - Last Filed: 03/24/24 13:34> - General Source: patient, RN notes reviewed <Patti Hay - Last Filed: 03/24/24 18:08> - General Chief Complaint: Psychiatric Symptoms Stated Complaint: Petition Time Seen by Provider: 03/24/24 13:35 - History of Present Illness Initial Comments: Quick note: 29-year-old female escorted by police presented the ER for mental health evaluation. Patient is reporting current suicidal ideations. Denies plans. Patient denies any alcohol use. Patient does smoke marijuana. Denies any hallucinations. Patient denies any other complaints. (Gislee Bustos) 29-year-old female presenting to the ER for mental health evaluation petition and by police department. Patient states she has a long history of depression and over the past few days has been feeling very overstimulated by her kids and feels as though she lashes out at her kids out of anger. She states she was overwhelmed this morning which prompted her to text her friend that she was going to kill herself. Patient states she no longer wants to kill herself. She has a history of [employer]. No medical complaints at this time. (Patti Hay) - Related Data Home Medications Medication Instructions Recorded Confirmed Famotidine [Pepcid] 20 mg PO BID PRN 03/24/24 03/24/24 Allergies Allergy/AdvReac Type Severity Reaction Status Date / Time latex AdvReac Rash/Hives Verified 03/24/24 16:09 Review of Systems ROS Other: All systems not noted in ROS Statement are negative. <Gisele Bustos - Last Filed: 03/24/24 13:34> ROS Other: All systems not noted in ROS Statement are negative. <Patti Hay - Last Filed: 03/24/24 18:08> ROS Statement: Those systems with pertinent positive or pertinent negative responses have been documented in the HPI. Past Medical History Past Medical History: Seizure Disorder Additional Past Medical History / Comment(s): new onset seizures 03/29/19 History of Any Multi-Drug Resistant Organisms: None Reported Past Surgical History: Tubal Ligation Past Anesthesia/Blood Transfusion Reactions: No Reported Reaction Past Psychological History: Anxiety, Depression Smoking Status: Never smoker Past Alcohol Use History: None Reported Past Drug Use History: Marijuana - Past Family History Mother Family Medical History: Cancer Additional Family Medical History / Comment(s): cervical cancer Father Family Medical History: No Reported History Brother(s) Family Medical History: No Reported History Sister(s) Family Medical History: No Reported History <Gisele Bustos - Last Filed: 03/24/24 13:34> General Exam Limitations: no limitations <Gisele Bustos - Last Filed: 03/24/24 13:34> General appearance: alert, in no apparent distress Head exam: Present: atraumatic, normocephalic, normal inspection Neurological exam: Present: alert, oriented X3 Psychiatric exam: Present: normal affect, normal mood, depressed. Absent: homicidal ideation, suicidal ideation Skin exam: Present: warm, dry, intact, normal color. Absent: rash <Patti Hay - Last Filed: 03/24/24 18:08> - General Exam Comments Initial Comments: Visual Physical Exam Vital signs reviewed General: Well-appearing, nontoxic, no acute distress. Head: Normocephalic, atraumatic Eyes: PERRLA, EOMI ENT: Airway patent Chest: Nonlabored breathing Skin: No visual rash, normal skin tone Neuro: Alert and oriented 3 Musculoskeletal: No gross abnormalities (Gisele Bustos) Course Vital Signs 03/24/24 03/24/24 12:59 16:10 Temperature 98.7 F 98.1 F Pulse Rate 86 75 Respiratory 18 17 Rate Blood Pressure 109/71 108/71 O2 Sat by Pulse 96 95 Oximetry Medical Decision Making <Gisele Bustos - Last Filed: 03/24/24 13:34> <Patti Hay - Last Filed: 03/24/24 18:08> - Medical Decision Making I performed the quick note portion of this chart. Electronically signed by Gisele Bustos PA-C (Gisele Bustos) Was pt. sent in by a medical professional or institution ([facility] Abdullahi, [employer], urgent care, hospital, or group home...) When possible be specific @ -Petition by police department for mental health evaluation Did you speak to anyone other than the patient for history (EMS, parent, family, police, friend...)? What history was obtained from this source @ -No Did you review nursing and triage notes (agree or disagree)? Why? @ -I reviewed and agree with nursing and triage notes Were old charts reviewed (outside hosp., previous admission, EMS record, old EKG, old radiological studies, urgent care reports/EKG's, group home records)? Report findings @ -No old charts were reviewed Differential Diagnosis (chest pain, altered mental status, abdominal pain women, abdominal pain men, vaginal bleeding, weakness, fever, dyspnea, syncope, headache, dizziness, GI bleed, back pain, seizure, CVA, palpatations, mental health, musculoskeletal)? @ -Differential Mental Health Depression, anxiety, bipolar, psychosis, schizophrenia, borderline personality, situational depression, adjustment disorder, behavioral disorder, brain tumor, malingering, substance abuse, encephalopathy, medication reaction, dementia, hypothyroidism, degenerative neurologic disorder, lupus.... This is not meant to be all-inclusive list EKG interpreted by me (3pts min.). @ -None X-rays interpreted by me (1pt min.). @ -None done CT interpreted by me (1pt min.). @ -None done U/S interpreted by me (1pt. min.). @ -None done What testing was considered but not performed or refused? (CT, X-rays, U/S, labs)? Why? @ -None What meds were considered but not given or refused? Why? @ -None Did you discuss the management of the patient with other professionals (professionals i.e. , PA, [employer], lab, RT, psych nurse, sexual assault social worker, job service specialist, teacher, district resource officer, leather case finisher)? Give summary @ -I spoke with Rk from [facility] who recommends admission for inpatient psychiatric treatment. I agree with this plan Was smoking cessation discussed for >3mins.? @ -No Was critical care preformed (if so, how long)? @ -No Were there social determinants of health that impacted care today? How? (Homelessness, low income, unemployed, alcoholism, drug addiction, transportation, low edu. Level, literacy, decrease access to med. care, long term, rehab)? @ -No Was there de-escalation of care discussed even if they declined (Discuss DNR or withdrawal of care, Hospice)? DNR status @ -No What co-morbidities impacted this encounter? (DM, HTN, Smoking, COPD, CAD, Cancer, CVA, ARF, Chemo, Hep., AIDS, mental health diagnosis, sleep apnea, morbid obesity)? @ -None Was patient admitted / discharged? Hospital course, mention meds given and route, prescriptions, significant lab abnormalities, going to OR and other pertinent info. @ -Admitted. 29-year-old female petitioned by police for suicidal ideation. Patient texted her friend this morning that she was going to kill herself. Denies plan. No medical complaints at this time. Patient was medically cleared to be seen by [facility]. I spoke with Rk from [facility] who recommends admission for inpatient psychiatric treatment. I agree with this plan. Case was discussed with my ED attending Dr. Daniels. Undiagnosed new problem with uncertain prognosis? @ -No Drug Therapy requiring intensive monitoring for toxicity (Heparin, Nitro, Insulin, Cardizem)? @ -No Were any procedures done? @ -No Diagnosis/symptom? @ -Suicidal ideation Acute, or Chronic, or Acute on Chronic? @ -Acute Uncomplicated (without systemic symptoms) or Complicated (systemic symptoms)? @ -Uncomplicated Side effects of treatment? @ -No Exacerbation, Progression, or Severe Exacerbation? @ -No Poses a threat to life or bodily function? How? (Chest pain, [place], [place], pneumonia, PE, COPD, DKA, ARF, appy, cholecystitis, CVA, Diverticulitis, Homicidal, Suicidal, threat to staff... and all critical care pts) @ -Yes, suicidal (HayPatti) - Lab Data Lab Results 03/24/24 Range/Units 16:16 Urine Opiates Screen Not Detected (NotDetected) Ur Oxycodone Screen Not Detected (NotDetected) Urine Methadone Screen Not Detected (NotDetected) Ur Barbiturates Screen Not Detected (NotDetected) U Tricyclic Antidepress Not Detected (NotDetected) Ur Phencyclidine Scrn Not Detected (NotDetected) Ur Amphetamines Screen Detected H (NotDetected) U Methamphetamines Scrn Not Detected (NotDetected) U Benzodiazepines Scrn Detected H (NotDetected) Urine Cocaine Screen Not Detected (NotDetected) U Marijuana (THC) Screen Detected H (NotDetected) Disposition <Gisele Bustos - Last Filed: 03/24/24 13:34> Time of Disposition: 18:08 <Patti Hay - Last Filed: 03/24/24 18:08> Clinical Impression: Suicidal ideation Disposition: ADMITTED IP TO THIS [facility] Referrals: Kishore Zamudio Jr, DO [Primary Care Provider] - 1-2 days
[2024-03-24 16:46] LABS: Amphetamine Screen,Urine Detected (NotDetected); Barbiturate Screen,Urine Not Detected (NotDetected); Benzodiazepines Screen,Urine Detected (NotDetected); Cocaine Screen,Urine Not Detected (NotDetected); Methadone Screen, Urine Not Detected (NotDetected); Opiate Screen,Urine Not Detected (NotDetected); Oxycodone Screen, Urine Not Detected (NotDetected); Phencyclidine Screen,Urine Not Detected (NotDetected); Tricyclic Antidepressant,Urine Not Detected (NotDetected); Urn Cannabinoid Scrn Detected (NotDetected)
[2024-03-24] MEDS ORDERED: MAG HYDROX/AL HYDROX/SIMETH 355 ML BOTTLE PO PRN (20:54)
[2024-03-24] MEDS ORDERED: HALOPERIDOL LACTATE 5 MG/ML 1 ML VIAL IM PRN (20:54)
[2024-03-24] MEDS ORDERED: LORazepam 1 MG TAB PO PRN (20:54)
[2024-03-24] MEDS ORDERED: haloperidoL 5 MG TAB PO PRN (20:54)
[2024-03-24] MEDS ORDERED: IBUPROFEN 600 MG TAB PO PRN (20:54)
[2024-03-24] MEDS ORDERED: LORazepam 2 MG/ML INJ IM PRN (20:54)
[2024-03-24] MEDS ORDERED: MAGNESIUM HYDROXIDE 2,400 MG/30 ML CUP PO PRN (20:54)
[2024-03-24] MEDS ORDERED: traZODone HCL 50 MG TAB PO PRN (20:54)
[2024-03-24] MEDS ORDERED: ACETAMINOPHEN TAB 325 MG TAB PO PRN (20:54)
[2024-03-25 07:59] LABS: Basophils # (A) 0.1 k/uL (0-0.2); Basophils % (A) 1 %; Eosinophils # (A) 0.4 k/uL (0-0.7); Eosinophils % (A) 6 %; HCT 38.8 % (34.0-46.0); HGB 12.7 gm/dL (11.4-16.0); Lymphocytes # (A) 2.1 k/uL (1.0-4.8); Lymphocytes % (A) 31 %; MCH 29.3 pg (25.0-35.0); MCHC 32.9 g/dL (31.0-37.0); MCV 89.2 fL (80.0-100.0); Mean Platelet Volume 7.9; Monocytes # (A) 0.4 k/uL (0-1.0); Monocytes % (A) 6 %; Neutrophils # (A) 3.7 k/uL (1.3-7.7); Neutrophils % (A) 54 %; Platelet Count 232 k/uL (150-450); RBC 4.34 m/uL (3.80-5.40); RDW 13.7 % (11.5-15.5); WBC 6.8 k/uL (3.8-10.6)
[2024-03-25] MEDS: NICOTINE 14MG/24HR PATCH TRANSDERM SCH (08:06)
[2024-03-25 08:16] LABS: ALT 10 U/L (4-34); AST 19 U/L (14-36); African American GFR (CKD) >90 (>60 ml/min/1.73 sqM); Albumin 4.3 g/dL (3.5-5.0); Alkaline Phosphatase 58 U/L (38-126); Anion Gap 5 mmol/L; Blood Urea Nitrogen 8 mg/dL (7-17); Calcium 9.3 mg/dL (8.4-10.2); Carbon Dioxide 27 mmol/L (22-30); Chloride 107 mmol/L (98-107); Glucose 91 mg/dL (74-99); Non-African American GFR(CKD) >90 (>60 ml/min/1.73 sqM); Potassium 4.8 mmol/L (3.5-5.1); Sodium 139 mmol/L (137-145); Total Bilirubin 0.4 mg/dL (0.2-1.3); Total Protein 6.7 g/dL (6.3-8.2)
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
[2024-03-25 12:05] VITALS: BMI 22.1
[2024-03-25] MEDS: OLANZapine 5 MG TAB PO SCH (21:29)
[2024-03-26] MEDS: buPROPion XL 150 MG TAB.ER.24H PO SCH (08:41)
--- NOTE | 2024-03-26 11:00 | P.PN ---
Subjective Progress Note Date: 03/26/24 Quick note: 29-year-old female escorted by police presented the ER for mental health evaluation. Patient was reporting current suicidal urges without plans. Patient denies any alcohol use. Patient does smoke marijua on a daily basis to try and control her mood swings. Denies any hallucinations. No medical complaints at this time. She says she slept well and has a good appetite. She was talking to one of the other patients about DBT and is very positive about working hard in DBT to gain control of her borderline Mental status exam the patient is alert and cooperative she had good eye contac t and reasonable response times, did not seem to be pressure, she was casually dressed, psychomotor activity was normal, she was oriented to person place time and circumstances.. She denied and did not evidence any psychotic or paranoid thinking..sshe denies suicidality or homicidality Diagnosis cyclothymic disorder borderline personality disorder ADHD Plan: the patient did well on combination of Seroquel and Depakote which did not make her too sleepy, however Seroquel only lasted for 18 hours, so we are going to try Zyprexa instead. Also we are going to add in Wellbutrin which is good for ADHD and for seasonal affective disorder and does not agitate moods. She is also going to be referred to DBT and wants to get into that and work hard at. I do think that the hope she now evidences his beginning and that she is fragile and would not be handle going back to her handling the 3 kids without becoming suicidal we need to get some medications on board and help her plan at discharge Objective - Vital Signs Vital signs: Vital Signs Temp 97.6 F 03/26/24 06:51 Pulse 67 03/26/24 06:51 Resp 16 03/26/24 06:51 BP 93/55 03/26/24 06:51 Pulse Ox 98 03/26/24 06:51 FiO2 Intake & Output 03/25/24 03/26/24 03/26/24 18:59 06:59 18:59 Weight 56.6 kg - Labs CBC & Chem 7: 03/25/24 07:35 03/25/24 07:35
--- NOTE | 2024-03-27 00:58 | P.CONS ---
History of Present Illness - Reason for Consult Consult date: 03/27/24 - History of Present Illness The patient is a 29-year-old female with a PMH of anxiety and depression as well as marijuana abuse who had presented to the emergency room requesting a psychiatric evaluation. The patient was admitted to the mental health unit where she was seen and evaluated while accompanied by an U platform power technician. The patient reports that she had been feeling overwhelmed over the past several days and decided to seek care. She reports a history of anxiety and depression and notes that her symptoms are worsening. She does report recreational marijuana use. Denied any physical complaints at the time of interview. Denied experiencing chest discomfort, shortness of breath, fever, chills, cough, [place], vomiting, abdominal pain, diarrhea. Laboratory evaluation revealed WBC count 6.8, hemoglobin 12.7, plate count 232, sodium 139, testing 4.8, BUN 8, creatinine 0.73, with urine toxicology positive for marijuana, benzodiazepines, and amphetamines. Review of systems: Pertinent positives and negatives as discussed in HPI, a complete review of systems was performed and all other systems are negative. Physical examination: General: non toxic, no distress, appears at stated age, normal weight Derm: no unusual rashes/lesions, no unusual ecchymoses, warm, dry Head: atraumatic, normocephalic, symmetric Eyes: EOMI, no lid lag, anicteric sclera ENT: Nose and ears atraumatic, no thrush, no pharyngeal erythema Neck: trachea midline, supple Mouth: no lip lesion, mucus membranes moist Cardiovascular: S1S2 reg, no murmur, no edema Lungs: CTA bilateral, no rhonchi, no rales , no accessory muscle use Abdominal: soft, nontender to palpation, no guarding Ext: no gross muscle atrophy, no contractures, Neuro: No gross focal neuro deficits noted Psych: Alert, oriented, appropriate affect Assessment: Marijuana abuse Anxiety and depression Imaging: None performed Data Review: Laboratory evaluation revealed WBC count 6.8, hemoglobin 12.7, plate count 232, sodium 139, testing 4.8, BUN 8, creatinine 0.73, with urine toxicology positive for marijuana, benzodiazepines, and amphetamines. Plan: Strongly advised on the importance of cessation from marijuana use Defer management of anxiety and depression to primary psychiatry service Thank you for allowing us to participate in the care of this patient. We will follow peripherally. Do not hesitate to contact us with questions. Someone can be reached from the [facility] hospitalist group at all hours of the day at [phone]. Past Medical History Past Medical History: Seizure Disorder Additional Past Medical History / Comment(s): new onset seizures 03/29/19, g astritis History of Any Multi-Drug Resistant Organisms: None Reported Past Surgical History: Tubal Ligation Past Anesthesia/Blood Transfusion Reactions: No Reported Reaction Past Psychological History: Anxiety, Depression Smoking Status: Never smoker Past Alcohol Use History: None Reported Past Drug Use History: Marijuana - Past Family History Mother Family Medical History: Cancer Additional Family Medical History / Comment(s): cervical cancer Father Family Medical History: No Reported History Brother(s) Family Medical History: No Reported History Sister(s) Family Medical History: No Reported History Medications and Allergies Home Medications Medication Instructions Recorded Confirmed Type Famotidine [Pepcid] 20 mg PO BID PRN 03/24/24 03/24/24 History Allergies Allergy/AdvReac Type Severity Reaction Status Date / Time latex AdvReac Rash/Hives Verified 03/24/24 16:09 Physical Exam Vitals: Vital Signs Temp Pulse Resp BP Pulse Ox 03/26/24 06:51 97.6 F 67 16 93/55 98 Results CBC & Chem 7: 03/25/24 07:35 03/25/24 07:35
--- NOTE | 2024-03-27 11:12 | P.PN ---
Progress Note - Text Progress Note Date: 03/27/24 Interval History: Patient was seen wandering the hallways and was directable and agreeable to sp adiel with scientific technical writer in the office. She states feeling better but still reporting sleep difficulties, described as issues falling asleep. She states being off her medications for the last 4 years which prompted her to seek admission. She feels as though there is a seasonal component to her depression however she is denying any depressive symptoms at this time. At this time patient denies any suicidal or homicidal ideations, intent or plan. Patient denies any auditory, visual hallucinations and denies any paranoia or delusions. Patient denies any side effects from the medications and has been compliant with meds. Mental Status Exam: General Appearance: Patient appears to be stated age is alert, directable, and cooperative. Behavior: Patient is calmly seated without any agitated behavior. Speech: Patient's speech is fluent and nonpressured. Mood/Affect: Mood is improving mildly, affect is congruent and blunted. Suicidality/Homicidality: Patient denies having any suicidal or homicidal ideation intent or plan. Perceptions: Patient denies any visual hallucinations and denies any auditory hallucinations Though content/process: There is no evidence of any delusional thought content and thought process is linear and goal-directed. Memory and concentration: AOX3, grossly intact for the purposes of this session Judgment and insight: Improving mildly Assessment Bipolar disorder, current episode depressed Cannabis use disorder Borderline personality disorder History of ADHD Plan: -Patient continues to meet criteria for inpatient psychiatric admission for s ymptom stabilization and safety. Patient has signed adult voluntary form and medication consent and was placed in patient's chart. -Medications: Continue Wellbutrin XL 150 mg daily for depression, increase Zyprexa to 10 mg at bedtime for mood stabilization, start melatonin 5 mg at bedtime for insomnia and continue trazodone 50 mg as needed at bedtime for insomnia -When necessary Ativan and Haldol for agitation/aggression. -Labs: wnl -SW on board for discharge planning. Encouraged the patient to participate in milieu. Anticipate discharge back home with family tomorrow
[2024-03-27] MEDS: LORazepam 1 MG TAB PO PRN (12:44)
[2024-03-27] MEDS: traZODone HCL 50 MG TAB PO PRN (20:31)
[2024-03-27] MEDS: MELATONIN 5 MG TABLET PO SCH (20:31)
[2024-03-27] MEDS: OLANZapine 10 MG TAB PO SCH (20:31)
[2024-03-28 06:37] VITALS: BP 104/69; PULSE 57; RESP 14; TEMP 92
--- NOTE | 2024-03-28 11:56 | P.DS ---
Providers Date of admission: 03/24/24 20:44 Attending physician: Princess Kulkarni MD Consults: 03/25/24 09:05 Consult Physician Routine Consulting Provider: Nelia Physician Consult Reason/Comments: H & P w/medical management Do you want consulting provider notified?: Yes Primary care physician: Kishore Zamudio - Discharge Diagnosis(es) (1) Bipolar disorder, current episode depressed, mild or moderate severity, unspecified Current Visit: Yes Status: Chronic (2) Cannabis use disorder Current Visit: Yes Status: Chronic (3) Borderline personality disorder Current Visit: Yes Status: Chronic Hospital Course: Admission HPI: Admission note was completed by Dr. Carrera. "Quick note: 29-year-old female escorted by police presented the ER for mental health evaluation. Patient was reporting current suicidal ideations. Denies plans. Patient denies any alcohol use. Patient does smoke marijuana on a daily basis to try and control her mood swings. Denies any hallucinations. She presented to the ER for mental health evaluation petition and by police department. However she is now voluntary. Patient states she has a long history of depression and over the past few days has been feeling very overstimulated by her kids and feels as though she lashes out at her kids out of anger. She also enjoys her boyfriend when he visits from [place] but then lashes out at him irrationally when he leaves. She states she was overwhelmed this morning which prompted her to text her friend that she was going to kill herself. Patient states she no longer wants to kill herself. Past psychiatric diagnoses She has a history of BPD. she has also been diagnosed with ADHD but has never been treated for. She also been diagnosed with bipolar disorder and has been treated with Depakote and Seroquel and didn't find them helpful.she says that she has done a lot of research and agrees with the personality disorder but also is to easily triggered where things make her more angry or more sad then make sense. U she these are triggered and they're not just relative to a remote. She also loses things when she puts him down can't finish projects gets distracted easily. She says that her parents did not believe in medications for children so she was never treated for ADHD although she struggled throughout school. She also complains of modes that swing rapidly up and down on the same day. She says she is either black or white, one moment she will be high and life is great and everything was wonderful and her friends tell her that she is "over the top" than that will go away and she'll bottom out into a deep depression. These will last for hours and go up and down on the same day. She says that the depression has a seasonal affect of component to it being a lot worse in the winter although even then it comes and goes." Hospital course: Upon admission to the unit patient was directable and agreeable to commence treatment and signed adult voluntary form. Patient got along well with other patients on the unit and followed unit protocol. Patient was compliant with the medications and denied any side effects throughout hospital course. Patient was started on Wellbutrin XL, Zyprexa, and Melatonin; Trazodone was made available as needed for insomnia. Patient spoke of their stressors and engaged in therapy both group and individual. Patient was also seen by medical team for history and physical exam. Throughout the course of the hospitalization patient gradually improved with regards to mood and sleep and improved their level of functioning. On the day of discharge patient denied any suicidal or homicidal ideations, intent, or plan denied; they denied any auditory or visual hallucinations. Patient endorsed wanting to live for their health and children. The patient denied any access to guns or weapons. Patient denied any paranoia and did not endorse any delusions. Patient does use cannabis and was counseled on abstaining from all substances including alcohol and marijuana. Patient was also counseled on the medications and need for regular compliance and was encouraged to follow-up with their outpatient appointment for mental health and also for primary care. Mental status exam: General Appearance: Patient appears to be stated age is alert, pleasant, and cooperative. Patient is in no acute distress and has improved hygiene and grooming Behavior: Patient is calmly seated without any agitated behavior. Speech: Patient's speech is fluent and nonpressured. Mood/Affect: Patient reports their mood is "good", affect is congruent and euthymic. Suicidality/Homicidality: Patient denies having any suicidal or homicidal ideation intent or plan. Perceptions: Patient denies any auditory or visual hallucinations. Though content/process: There is no evidence of any delusional thought content and thought process is linear and goal-directed. More future oriented Memory and concentration: AOX3, grossly intact for the purposes of this session. Judgment and insight: Improved with guarded prognosis Impression: Borderline personality disorder Bipolar disorder, current episode depressed Cannabis use disorder History of ADHD Plan: -Continue with discharge today as patient has improved and stabilized psychiatrically and is not currently an imminent threat to themself and/or others. Patient will remain at chronically elevated risk for harm to self and/or others due to their impulsivity and cannbis use. -Continue medications: Wellbutrin XL 150 mg daily for depression, Zyprexa 10 mg at bedtime for mood stabilization, Melatonin 5 mg at bedtime for insomnia -Patient was counseled on the need for medication compliance and appropriate follow-up at mental health and also primary care for medical issues. Patient verbalized understanding and agreed. -Social work to help coordinate patients discharge today. Social work also to arrange for patients follow up appointments with [facility] for psychiatric care along with follow up with primary care provider. -Patient counseled on abstaining from recreational drugs and marijuana and alcohol. Was informed/educated on the adverse effects on their physical and mental health. Patient verbally agreed and understood. -Patient was instructed to return to the hospital or seek immediate medical care if their psychiatric or medical symptoms do worsen or reoccur. Patient Condition at Discharge: Fair Plan - Discharge Summary Discharge Rx Participant: Yes New Discharge Prescriptions: New buPROPion XL [Wellbutrin XL] 150 mg PO DAILY #30 tab Melatonin 5 mg PO HS #30 tab OLANZapine [ZyPREXA] 10 mg PO HS #30 tab Continue Famotidine [Pepcid] 20 mg PO BID PRN PRN Reason: acid reflux Discharge Medication List Famotidine [Pepcid] 20 mg PO BID PRN 03/24/24 [History] Melatonin 5 mg PO HS #30 tab 03/28/24 [Rx] OLANZapine [ZyPREXA] 10 mg PO HS #30 tab 03/28/24 [Rx] buPROPion XL [Wellbutrin XL] 150 mg PO DAILY #30 tab 03/28/24 [Rx] Follow up Appointment(s)/Referral(s): [facility] [Outside] - 04/03/24 1:30 pm (with Erika) Kishore Zamudio Jr, [Primary Care Provider] - 1-2 days Activity/Diet/Wound Care/Special Instructions: [facility] Discharge Info Avoid the use of street drugs and alcohol. Take all medications as prescribed. When you are in need of refills on your medications, please contact your outpatient medical provider and/or outpatient psychiatrist. Please go to your scheduled outpatient appointments for aftercare treatment. If symptoms return or become worse, call the crisis line at or and/or visit the nearest emergency room for assistance. National Suicide and Crisis Lifeline - call or text 678
== END 2024-03-28 12:40 | disposition home or self-care (01) | DRG 753 ==
LOC: EC 12:24 → 3MHU 20:44
PROVIDERS: ADMIT Psychiatry & Neurology Psychiatry; ATTEND Psychiatry & Neurology Psychiatry
DX: F31.30 Bipolar disorder, current episode depressed, mild or moderate severity, unspecified (principal); F12.10 Cannabis abuse, uncomplicated; F60.3 Borderline personality disorder; R45.851 Suicidal ideations; F90.9 Attention-deficit hyperactivity disorder, unspecified type; G47.00 Insomnia, unspecified; G40.909 Epilepsy, unspecified, not intractable, without status epilepticus; F41.9 Anxiety disorder, unspecified; F34.0 Cyclothymic disorder; Z91.040 Latex allergy status; Z79.899 Other long term (current) drug therapy
CPT/HCPCS: 80053; 80306; 81025; 82075; 83036; 85025; 87636; 99285